=== PATIENT | female | born 1955 | race Caucasian/White ===

== ENCOUNTER 2020-03-09 00:54 | Outpatient (CLI) | payer OTHER, SELFPAY ==
[2020-03-09 17:41] LABS: SARS-CoV-2 RNA PCR Negative
== END 2020-03-09 00:55 | disposition home or self-care (01) ==
LOC: ANHCOVIDDT 00:54
PROVIDERS: PCP Internal Medicine; Visit Provider Internal Medicine Gastroenterology
DX: Z01.812 Encounter for preprocedural laboratory examination (principal); Z20.828 Contact with and (suspected) exposure to other viral communicable diseases
CPT/HCPCS: 87635; C9803; U0003

== ENCOUNTER 2020-03-11 01:56 | Day surgery (SDC) | payer OTHER, SELFPAY ==
[2020-03-05 15:13] VITALS: BMI 21.2
[2020-03-11 10:07] VITALS: BP 158/86; PULSE 50; RESP 18; TEMP 36.1; O2SAT 99; BMI 22.7
[2020-03-11] MEDS: LACTATED RINGERS 1,000 ML 150 ML IV CONT (10:17)
--- NOTE | 2020-03-11 10:17 | WPDANESEPPF ---
Anes - Initial Pre Proc Eval Procedure: Operation Date: 03/11/20 11:00 Proposed Procedures p Esophagogastroduodenoscopy - Salbador Burger MD Date/Time: 03/11/20 10:17 Surgeon: Salbador Burger MD Pre Op Diagnosis: dysphagia Patient Data Age: 64 Gender: F Height: 5 ft 10 in Weight: 72 kg Last Vital Signs Temp 97 F L 03/11/20 10:07 Pulse 50 L 03/11/20 10:07 Resp 18 03/11/20 10:07 BP 158/86 H 03/11/20 10:07 Pulse Ox 99 03/11/20 10:07 Allergies Allergy/AdvReac Type Severity Reaction Status Date / Time No Known Allergies Allergy Verified 03/11/20 10:05 Home Medications Medication Instructions Recorded Confirmed Type levothyroxine 112 mcg capsule 112 mcg PO DAILY 02/17/20 03/05/20 History lisinopril 10 mg tablet 10 mg PO DAILY 02/17/20 03/05/20 History simvastatin 20 mg tablet 20 mg PO DAILY 02/17/20 03/05/20 History valacyclovir 500 mg tablet 500 mg PO DAILY 02/17/20 03/05/20 History calcium carbonate [Calcium 600] 1,200 mg PO DAILY 03/05/20 03/05/20 History cholecalciferol (vitamin D3) 2,000 unit PO DAILY 03/05/20 03/05/20 History [Vitamin D3] Patient hx anesthesia problems: none Family hx anesthesia problems: none PMFSH Past Medical History Medical History (Updated 02/17/20 @ 10:06 by Salbador Burger MD) Adenomatous colon polyp Cancer Heart murmur High cholesterol Hypertension Hypothyroidism Family History Family History (Updated 02/17/20 @ 09:48 by Tamara Simental) Father Liver cancer Mother Heart attack Social History Social History (Updated 02/17/20 @ 09:49 by Tamara Simental) Smoking status: Never smoker Alcohol intake: current Drinks per week: 3 Alcohol use details: WINE Substance use: never Substance use type: does not use Living arrangements: with family Spiritual care concerns: No Anes - Eval Final PreProcedure Day of Procedure 03/11/20 10:17 Patient weight: normal Heart: regular rate and rhythm Lungs: clear to auscultation Airway: Mallampati scale class II Neurological: alert and oriented Last oral intake: >/= 8 hours ASA classification: III Emergent: no Anesthetic plan: proceed Anesthesia type and monitoring: general GIVS and standard monitoring Informed Consent: The patient's anesthetic plan and its attendant risks and benefits were discussed with the patient/family/POA. Questions were solicited and answers provided to the satisfaction of the patient/family/POA.
--- NOTE | 2020-03-11 10:30 | WPDHPUPDATE1 ---
History and Physical Update Update Date/Time: 03/11/20 10:30 History and Physical has been reviewed, including an updated exam of the patient. There are NO changes in the patient's condition. Risks, benefits, and alternatives have been discussed and questions answered. Patient agrees to proceed with procedure.
[2020-03-11 10:53] VITALS: BP 134/88; PULSE 61; RESP 36; O2SAT 97
[2020-03-11 11:05] VITALS: BP 136/94; PULSE 56; RESP 25; O2SAT 94
[2020-03-11 11:15] VITALS: BP 150/102; PULSE 51; RESP 15
== END 2020-03-11 11:39 | disposition home or self-care (01) ==
PROVIDERS: PCP Internal Medicine; Visit Provider Internal Medicine Gastroenterology
PROC: 0DJ08ZZ Inspection of Upper Intestinal Tract, Via Natural or Artificial Opening Endoscopic (ICD-10-PCS; CPT 43235; principal; 2020-03-11 11:00)
DX: K21.00 Gastro-esophageal reflux disease with esophagitis, without bleeding (principal); K22.2 Esophageal obstruction; K29.50 Unspecified chronic gastritis without bleeding; K44.9 Diaphragmatic hernia without obstruction or gangrene; I10 Essential (primary) hypertension; E78.00 Pure hypercholesterolemia, unspecified; E03.9 Hypothyroidism, unspecified
CPT/HCPCS: 43239; 43249; 88305; C1726; J2704; J7120

== ENCOUNTER 2020-06-18 13:20 | Outpatient (CLI) | payer OTHER, SELFPAY ==
--- NOTE | ~2020-06-18 | XR_ITS ---
EXAMINATION: XR hip RT min 2V, XR femur RT min 2V EXAM DATE: 06/18/2020 13:50 INDICATION: No known recent injury provided at this time. Pain of the right hip and femur. TECHNIQUE: Frontal and frog-leg lateral projections right hip, frontal and lateral projections right femur. There is no prior study for comparison. FINDINGS: There is moderate right hip primary osteoarthritis. No evidence of femoral head avascular n ecrosis. There are no acute right hip or femur fractures or dislocations identified. There is no sub cutaneous gas. Calcifications in the pelvis are believed to be phleboliths. There are no radiopaque foreign bodies. IMPRESSION: Moderate right hip osteoarthritis. Unremarkable femur. Reviewed, dictated and finalized at location [facility]. [facility] IMPRESSION: Moderate right hip osteoarthritis. Unremarkable femur.
== END 2020-06-18 13:21 | disposition home or self-care (01) ==
PROVIDERS: Family Provider Internal Medicine; PCP Internal Medicine; Visit Provider Internal Medicine
DX: M25.551 Pain in right hip (principal); M79.651 Pain in right thigh; M16.11 Unilateral primary osteoarthritis, right hip
CPT/HCPCS: 73502; 73552

== ENCOUNTER 2020-07-21 08:43 | Outpatient (CLI) | payer OTHER, SELFPAY | END 2020-07-21 08:44 | disposition home or self-care (01) | LOC: ANHCOVIDVC 08:44 | PROVIDERS: PCP Internal Medicine; Visit Provider Internal Medicine Gastroenterology | DX: Z23 Encounter for immunization (principal) | CPT/HCPCS: 0001A; 91300 ==

== ENCOUNTER 2020-08-11 08:42 | Outpatient (CLI) | payer OTHER, SELFPAY | END 2020-08-11 08:43 | disposition home or self-care (01) | LOC: ANHCOVIDVC 08:42 | PROVIDERS: PCP Internal Medicine | DX: Z23 Encounter for immunization (principal) | CPT/HCPCS: 0002A; 91300 ==

== ENCOUNTER 2022-05-02 07:06 | Day surgery (SDC) | payer MEDICARE, SELFPAY ==
[2022-04-27 10:42] VITALS: BMI 22.7
[2022-05-02 07:30] VITALS: BP 146/108; PULSE 57; RESP 16; TEMP 36.8; O2SAT 98; BMI 22.5
[2022-05-02] MEDS: LACTATED RINGERS 1,000 ML 150 ML IV CONT (07:55)
--- NOTE | 2022-05-02 08:55 | WPDANESEPPF ---
Anes - Initial Pre Proc Eval Procedure: Operation Date: 05/02/22 09:00 Proposed Procedures p Screening Colonoscopy - Salbador Burger MD Date/Time: 05/02/22 08:55 Surgeon: Salbador Burger MD Pre Op Diagnosis: History of Colon Polyps Patient Data Age: 66 Gender: F Height: 1.78 m Weight: 71.3 kg Last Vital Signs Temp 36.8 C 05/02/22 07:30 Pulse 57 L 05/02/22 07:30 Resp 16 05/02/22 07:30 BP 146/108 H 05/02/22 07:30 Pulse Ox 98 05/02/22 07:30 O2 Del Method Room Air 05/02/22 07:30 Allergies Allergy/AdvReac Type Severity Reaction Status Date / Time No Known Allergies Allergy Verified 05/02/22 07:41 Home Medications Medication Instructions Recorded Confirmed Type levothyroxine 112 mcg capsule 112 mcg PO DAILY 02/17/20 05/02/22 History lisinopril 10 mg tablet 10 mg PO DAILY 02/17/20 04/27/22 History simvastatin 20 mg tablet 20 mg PO DAILY 02/17/20 04/27/22 History valacyclovir 500 mg tablet 500 mg PO DAILY 02/17/20 04/27/22 History calcium carbonate 600 mg calcium 1,200 mg PO DAILY 03/05/20 04/27/22 History (1,500 mg) tablet (Calcium) cholecalciferol (vitamin D3) 50 2,000 unit PO DAILY 03/05/20 04/27/22 History mcg (2,000 unit) tablet (Vitamin D3) Patient hx anesthesia problems: none Family hx anesthesia problems: none Results Review: All pre-operative results and documents have been reviewed as part of the pre-operative evaluation. [facility] Past Medical History Medical History Adenomatous colon polyp Cancer Heart murmur High cholesterol Hypertension Hypothyroidism Surgical History Surgical History History of thyroid surgery Hx of thyroid cancer Family History Family History Father Liver cancer Mother Heart attack Social History Social History (Updated 12/13/21 @ 14:40 by HAILY Shirley Smoking status: Never smoker Alcohol intake: current Drinks per week: 3 Alcohol use details: WINE Substance use: never Substance use type: does not use Living arrangements: with family Sexual Orientation (if Verbalized by the Patient): Straight or Heterosexual Spiritual care concerns: No Anes - Eval Final PreProcedure Day of Procedure 05/02/22 08:55 Patient weight: normal Heart: regular rate and rhythm Lungs: clear to auscultation Airway: Mallampati scale class 1 Neurological: alert and oriented Last oral intake: >/= 8 hours ASA classification: III Emergent: no Anesthetic plan: proceed Anesthesia type and monitoring: general GIVS and standard monitoring Results Review: All pre-operative results and documents have been reviewed as part of the pre-operative evaluation. Informed Consent: The patient's anesthetic plan and its attendant risks and benefits were discussed with the patient/family/POA. Questions were solicited and answers provided to the satisfaction of the patient/family/POA.
--- NOTE | 2022-05-02 09:00 | PM.HPGS ---
History of Present Illness History of Present Illness Consent: Risks, benefits, and alternatives have been discussed and questions answered. Patient agrees to proceed with procedure. Chief complaint: History of Colon Polyps Narrative: Marietta Leblanc is a 66 year old female with colon polyp 5 years ago Review of Systems Constitutional: Constitutional: Denies headache(s) and Denies weakness Eyes: Eyes: Denies blurry vision ENT: Reports Normal hearing present, Denies headache(s) and Denies neck pain Cardiovascular: Cardiovascular: Denies chest pain and Denies dyspnea Respiratory: Respiratory: Denies dyspnea Gastrointestinal: Gastrointestinal: Reports no additional gastrointestinal complaints Genitourinary: Genitourinary: Denies dysuria Musculoskeletal: Musculoskeletal: Denies neck pain Integumentary/Breasts: Skin/Breast: Denies dry skin Neurologic: Reports Normal hearing present, Denies headache(s) and Denies weakness Psychiatric: Psychiatric: Denies anxiety Endocrine: Endocrine: Denies change in body appearance Hematologic/Lymphatic: Hematologic/Lymphatic: Denies easy bleeding Allergic/Immunologic: Allergic/Immunologic: Denies urticaria PMFSH Past Medical History Medical History Adenomatous colon polyp Cancer Heart murmur High cholesterol Hypertension Hypothyroidism Surgical History Surgical History History of thyroid surgery Hx of thyroid cancer Family History Family History Father Liver cancer Mother Heart attack Social History Social History (Updated 12/13/21 @ 14:40 by Cynthia Headley MA) Smoking status: Never smoker Alcohol intake: current Drinks per week: 3 Alcohol use details: WINE Substance use: never Substance use type: does not use Living arrangements: with family Sexual Orientation (if Verbalized by the Patient): Straight or Heterosexual Spiritual care concerns: No Meds Home Medications and Allergies Home Medications Medication Instructions Recorded Confirmed Type levothyroxine 112 mcg capsule 112 mcg PO DAILY 02/17/20 05/02/22 History lisinopril 10 mg tablet 10 mg PO DAILY 02/17/20 04/27/22 History simvastatin 20 mg tablet 20 mg PO DAILY 02/17/20 04/27/22 History valacyclovir 500 mg tablet 500 mg PO DAILY 02/17/20 04/27/22 History calcium carbonate 600 mg calcium 1,200 mg PO DAILY 03/05/20 04/27/22 History (1,500 mg) tablet (Calcium) cholecalciferol (vitamin D3) 50 2,000 unit PO DAILY 03/05/20 04/27/22 History mcg (2,000 unit) tablet (Vitamin D3) Allergies Allergy/AdvReac Type Severity Reaction Status Date / Time No Known Allergies Allergy Verified 05/02/22 07:41 Vital Signs Vital Signs - 24 hr 05/02/22 07:30 Temperature 98.3 F Pulse Rate 57 L Respiratory Rate 16 Blood Pressure 146/108 H Pulse Oximetry 98 Oxygen Delivery Room Air Exam Const: General: comfortable and no acute distress HENMT: Face/Nose/Sinus: Normal nares present Eyes: General: appearance normal, both eyes and all related structures Neck: Neck: no JVD Resp: Auscultation: clear to auscultation bilaterally Cardio: Rate: regular rate Rhythm: regular rhythm GI: Inspection: non-distended GI Palp: Yes Soft to palpation Skin: General skin exam: normal color Neuro: General: gait normal Speech: normal speech Extrem: General: normal to inspection Psych: Mental Status: mental status grossly normal Assessment and Plan Assessment and plan (1) Adenomatous colon polyp: Code(s): D12.6 - Benign neoplasm of colon, unspecified Status: Acute Assessment and Plan: colonoscopy
[2022-05-02 09:36] VITALS: BP 141/90; PULSE 52; RESP 18; O2SAT 100
--- NOTE | 2022-05-02 09:41 | WPDANESPN ---
Anes - Prog Note Post-Op Date/Time: 05/02/22 09:41 Cardiovascular status: normal Respiratory status: normal Airway patency: baseline Mental status: baseline Post-Op hydration status: normal Vital Signs: Last Vital Signs Temp 36.8 C 05/02/22 07:30 Pulse 57 L 05/02/22 07:30 Resp 16 05/02/22 07:30 BP 146/108 H 05/02/22 07:30 Pulse Ox 98 05/02/22 07:30 O2 Del Method Room Air 05/02/22 07:30 Pain Score (VAS): 0 I/O: Intake & Output 05/01/22 05/02/22 05/02/22 23:59 07:59 15:59 Intake Total 400 Balance 400 Patient Feedback: Patient satisfied with anesthetic care.
[2022-05-02 09:46] VITALS: BP 122/80; BP 150/100; PULSE 51; PULSE 99; RESP 16; RESP 20; O2SAT 100; O2SAT 99
== END 2022-05-02 10:03 | disposition home or self-care (01) ==
PROVIDERS: PCP Internal Medicine; Visit Provider Internal Medicine Gastroenterology
PROC: 0DJD8ZZ Inspection of Lower Intestinal Tract, Via Natural or Artificial Opening Endoscopic (ICD-10-PCS; CPT 45378; principal; 2022-05-02 09:00)
DX: Z86.010 Personal history of colon polyps (principal)
CPT/HCPCS: 45378

== ENCOUNTER 2022-06-29 13:53 | Outpatient (CLI) | payer MEDICARE, SELFPAY ==
--- NOTE | ~2022-06-29 | DEXA_ITS ---
Bone Density Report Name: GERTRUDIS ANN Age: 66 Sex: Female Ethnicity: White Date of : 1955 Indication: postmenopausal; screening for osteoporosis; parental hip fracture; height loss; cancer; Referring Provider: PATRICIA*JAMESON Mathew Study: Bone densitometry was performed. Exam Date: June 29, 2022 Accession number: [id number] Bone Density: Region BMD T-score Z-score Classification AP Spine(L1-L4) 0.983 -0.6 1.3 Normal Femoral Neck (Left) 0.663 -1.7 -0.1 Osteopenia Total Hip (Left) 0.804 -1.1 0.2 Osteopenia Femoral Neck (Right) 0.730 -1.1 0.5 Osteopenia Total Hip (Right) 0.850 -0.8 0.6 Normal Total Hip Mean 0.827 -1.0 0.4 Normal World Health Organization criteria for BMD impression classify patients as: Normal (T-score at or above -1.0), Osteopenia (T-score between -1.0 and -2.5), or Osteoporosis (T-score at or below -2.5). 10-year Fracture Risk(1): Major Osteoporotic Fracture 17% Hip Fracture 1.7% Reported Risk Factors: [place] (), Neck BMD=0.663, BMI=23.6, parental fracture (1) FRAX(R) Version 3.08. Fracture probability calculated for an untreated patient. Fracture probability may be lower if the patient has received treatment. Previous Exams: Region Exam Age BMD T-score BMD Change BMD Change Date g/cm2 vs Baseline vs Previous AP Spine (L1-L4) 06/29/2022 66 0.983 -0.6 -0.018 (-1.8%) 0.000 (0.0%) 03/16/2016 60 0.983 -0.6 -0.018 (-1.8%) -0.018 (-1.8%) 12/24/2013 58 1.001 -0.4 Total Hip(Left) 06/29/2022 66 0.804 -1.1 0.013 (1.6%) -0.043 (-5.1%) 03/16/2016 60 0.847 -0.8 0.056 (7.0%)* 0.056 (7.0%)* 12/24/2013 58 0.792 -1.2 Total Hip(Right) 06/29/2022 66 0.850 -0.8 0.013 (1.6%) -0.020 (-2.3%) 03/16/2016 60 0.870 -0.6 0.033 (4.0%)* 0.033 (4.0%)* 12/24/2013 58 0.837 -0.9 *Denotes significance at 95% confidence level, LSC for AP Spine = 0.022 g/cm2, LSC for Total Hip = 0.027 g/cm2 Clinical Information Provided by Patient: Parent has had a hip fracture Has used the following medications: Vitamin D, Calcium Has the following medical conditions: Cancer Patient maximum height was 70 Menopause Age: 54 Onset of menses at age 13 Number of children 3 Impression: The patient has low bone mass, based on the Left Femoral Neck T-score. The patient has an estimated ten-year risk of hip fracture of 1.7% and an estimated ten-year risk of major fracture of
== END 2022-06-29 13:54 | disposition home or self-care (01) ==
LOC: ANHIMG 13:54
PROVIDERS: PCP Internal Medicine; Visit Provider Internal Medicine
DX: Z78.0 Asymptomatic menopausal state (principal); M85.852 Other specified disorders of bone density and structure, left thigh; M85.851 Other specified disorders of bone density and structure, right thigh
CPT/HCPCS: 77080

== ENCOUNTER 2022-08-27 11:59 | Emergency (ER) | payer MEDICARE, SELFPAY ==
[2022-08-27 12:14] VITALS: BP 136/96; PULSE 61; RESP 18; TEMP 36.3; O2SAT 99
[2022-08-27 12:16] VITALS: BP 136/96; PULSE 61; RESP 18; TEMP 36.3; O2SAT 99
--- NOTE | 2022-08-27 12:35 | ED.FEMALEGU ---
HPI - Female Genitourinary General Chief complaint: Urogenital-Female Stated complaint: Possible UTI Time Seen by Provider: 08/27/22 12:28 Source: patient Mode of arrival: ambulatory Limitations: no limitations History of Present Illness HPI Narrative: Patient presents today complaining of a 2-3 day history of urinary retention with dysuria that started this morning. Denies hematuria, abdominal pain, back pain, nausea vomiting, sweats or chills. She was recently on a course of amoxicillin after a root canal. Related Data Home Medications Medication Instructions Recorded Confirmed levothyroxine 112 mcg capsule 112 mcg PO DAILY 02/17/20 08/27/22 lisinopril 10 mg tablet 10 mg PO DAILY 02/17/20 08/27/22 simvastatin 20 mg tablet 20 mg PO DAILY 02/17/20 08/27/22 calcium carbonate 600 mg calcium 1,200 mg PO DAILY 03/05/20 08/27/22 (1,500 mg) tablet (Calcium) cholecalciferol (vitamin D3) 50 2,000 unit PO DAILY 03/05/20 08/27/22 mcg (2,000 unit) tablet (Vitamin D3) acyclovir 400 mg tablet 400 mg PO BID 08/27/22 08/27/22 docusate sodium 100 mg capsule 100 mg PO BID 08/27/22 08/27/22 meloxicam 15 mg tablet 15 mg PO DAILY 08/27/22 08/27/22 Allergies Allergy/AdvReac Type Severity Reaction Status Date / Time No Known Allergies Allergy Verified 08/27/22 12:14 Review of Systems Review of Systems: CONSTITUTIONAL: Denies body aches, fever, chills, or sweats. EYES: Denies visual changes, redness, or discharge. ENT: Denies rhinorrhea, congestion, sore throat, or otalgia. CARDIOVASCULAR: Denies chest pain, palpitations, or edema. RESPIRATORY: Denies cough or dyspnea. GASTROINTESTINAL: Denies abdominal pain, nausea, vomiting, or diarrhea. GENITOURINARY: Denies hematuria.+ dysuria, urinary retention SKIN: Denies rash, itching, or wounds. MUSCULOSKELETAL: Denies back pain, joint pain, or myalgia. NEUROLOGIC: Denies headache, numbness, tingling, or weakness. PSYCH: Denies depression or anxiety. [facility] Past Medical History Medical History Adenomatous colon polyp Cancer Heart murmur High cholesterol Hypertension Hypothyroidism Surgical History Surgical History History of thyroid surgery Hx of thyroid cancer Family History Family History Father Liver cancer Mother Heart attack Social History Social History Smoking status: Never smoker Alcohol intake: current Drinks per week: 3 Alcohol use details: WINE Substance use: never Substance use type: does not use Living arrangements: with family Occupation/Education: occupation Sexual Orientation (if Verbalized by the Patient): Straight or Heterosexual Spiritual care concerns: No Comments At time of signature, I have reviewed and agree with nursing past medical, surgical, social and family history unless otherwise noted. Please see nursing chart for further information. There is no relevant family history pertinent to the presenting complaint Exam Narrative: GENERAL: Well-appearing, well-nourished, and in no acute distress. HEAD: Normocephalic, atraumatic. EYES: EOMI. No redness or drainage. Conjunctivae normal. ENT: Mucous membranes pink and moist. NECK: Normal AROM. CHEST: No respiratory distress. Clear to auscultation. HEART: Regular rate and rhythm. No murmur appreciated. Normal peripheral pulses. ABDOMEN: Soft, nontender, nondistended, normal active bowel sounds.-CVAT MUSCULOSKELETAL: No bony tenderness. EXTREMITIES: Normal range of motion. No edema. SKIN: Warm, dry, no rash. Capillary refill normal. Normal skin turgor. NEURO: No focal deficits. Alert and oriented x3. Gait steady. PSYCH: Normal affect. No signs of depression or anxiety. Course Course Level of Care: Express Car
== END 2022-08-27 12:41 | disposition home or self-care (01) ==
PROVIDERS: Emergency Provider Nurse Practitioner; PCP Internal Medicine
DX: N30.01 Acute cystitis with hematuria (principal); R01.1 Cardiac murmur, unspecified; E78.00 Pure hypercholesterolemia, unspecified; I10 Essential (primary) hypertension; E03.9 Hypothyroidism, unspecified; Z85.850 Personal history of malignant neoplasm of thyroid
CPT/HCPCS: 81003; 87077; 87086; 87186; 99213; G0463

== ENCOUNTER 2023-01-13 10:09 | Outpatient (CLI) | payer MEDICARE, SELFPAY ==
--- NOTE | 2023-01-13 15:13 | WPDPFTINT ---
PFT Procedure Performed PFT Procedure Performed Plethysmography (Lung Vol) Diffusing Cap (DLCO) Flow Vol Loop Spirometry w/o Bronchodil PFT Interpretation This is a pulmonary function test with spirometry, plethysmography and diffusing capacity. The test was performed and results interpreted in accordance with the 2019 and 2005 ATS/ERS Task Force guidelines respectively using the Global Lung Function Initiative-2012 reference equations. Patient demonstrated good effort and cooperation. Reproducibility criteria were met. The quality of the spirometry maneuver was Grade B. Findings: Spirometry: The contour the inspiratory and expiratory flow tracing are normal. The FVC is 3.97 L, 110% predicted. The FEV1 is 3.18 L, 114% predicted. The FEV1: FVC ratio was 80%. Plethysmography: The total lung capacity is 6.17 L, 103% predicted. The functional residual capacity is 2.81 L, 82% predicted. The residual volume is 2.02 L, 83% predicted. Diffusing capacity: The diffusing capacity unadjusted for hemoglobin and carboxyhemoglobin is 18.4, 79% predicted. The diffusing capacity adjusted for alveolar volume is 3.71, 91% predicted. Impression: The spirometry is normal without evidence of an obstructive abnormality. The lung volumes are normal. The diffusing capacity is normal. There are no prior studies for comparison
== END 2023-01-13 10:10 | disposition home or self-care (01) ==
PROVIDERS: PCP Internal Medicine; Visit Provider Internal Medicine
DX: R06.00 Dyspnea, unspecified (principal)
CPT/HCPCS: 94375; 94726; 94729

== ENCOUNTER 2024-02-12 11:28 | Outpatient (CLI) | payer MEDICARE, SELFPAY ==
[2024-02-12 14:45] LABS: Basophils Absolute Auto 0.1 K/mm3 (0.0-0.1); Basophils Percent Auto 0.9 % (0.2-1.2); Eosinophils Absolute Auto 0.2 K/mm3 (0-0.3); Eosinophils Percent Auto 2.6 % (0-4.4); Hematocrit 43.4 % (37.0-47.0); Hemoglobin 14.8 g/dL (12.0-15.0); Immature Granulocyte Absolute 0.03 K/mm3 (0.00-0.031); Immature Granulocyte Percent A 0.5 % (0-0.5); Lymphocytes Absolute Auto 1.78 K/mm3 (0.9-3.2); Lymphocytes Percent Auto 26.9 % (18.3-44.2); Mean Corpuscular HGB Conc 34.1 g/dl (32-36); Mean Corpuscular Hemoglobin 32.7 pg (26-34); Mean Corpuscular Volume 95.8 fl (80-100); Mean Platelet Volume 10.2 fl (7.4-10.4); Monocytes Absolute Auto 0.6 K/mm3 (0.1-0.6); Monocytes Percent Auto 9.2 % (2.6-8.5); Neutrophils Percent Auto 59.9 % (45.5-73.1); Platelet Count Result 207 k/mm3 (150-375); Red Blood Count 4.53 M/mm3 (4.2-5.4); Red Cell Distribution Width 12.5 % (11.5-14.5); White Blood Count 6.6 K/mm3 (4.5-10.0)
[2024-02-12 15:12] LABS: Alanine Aminotransferase 20 U/L (6-35); Albumin Level 4.5 g/dL (3.5-5.1); Alkaline Phosphatase 55 U/L (38-126); Anion Gap 9 mmol/L (4-12); Aspartate Amino Transferase 54 U/L (14-36); Bilirubin,Total 0.7 mg/dL (0.2-1.3); Blood Urea Nitrogen 20 mg/dL (7-17); Calcium 9.4 mg/dL (8.4-10.2); Carbon Dioxide 28 mmol/L (22-30); Chloride 103 mmol/L (98-107); Cholesterol 188 mg/dL (0-200); Estimated Glomerular Filt Rate > 60; Glucose 82 mg/dL (65-110); HDL Direct 62 mg/dL; Potassium 3.9 mmol/L (3.4-5.0); Sodium 140 mmol/L (137-145); Triglycerides 119 mg/dL (<150)
[2024-02-12 15:23] LABS: LDL Cholesterol Direct 89 mg/dL
[2024-02-12 15:24] LABS: Vitamin D 25 Hydroxy 57.9 ng/mL
[2024-02-12 15:38] LABS: Thyroid Stimulating Hormone Reflex 0.069 uIU/mL (0.465-4.68)
[2024-02-12 16:16] LABS: Free T4 Free Thyroxine Reflex 1.65 ng/dL (0.78-2.19)
[2024-02-12 17:31] LABS: Total Triiodothyronine (T3) 0.97 NG/ML (0.97-1.69)
== END 2024-02-12 11:29 | disposition home or self-care (01) ==
LOC: ANHGOSHLAB 11:30
PROVIDERS: PCP Family Medicine; Visit Provider Family Medicine
DX: E03.9 Hypothyroidism, unspecified (principal); R53.83 Other fatigue; E55.9 Vitamin D deficiency, unspecified; Z13.220 Encounter for screening for lipoid disorders; Z13.228 Encounter for screening for other metabolic disorders; Z13.29 Encounter for screening for other suspected endocrine disorder
CPT/HCPCS: 36415; 80053; 80061; 82306; 84439; 84443; 84480; 85025

== ENCOUNTER 2024-04-03 15:12 | Outpatient (CLI) | payer MEDICARE, SELFPAY ==
[2024-04-03 20:09] LABS: Free T4 Free Thyroxine 1.49 ng/mL (0.78-2.19)
[2024-04-03 20:19] LABS: Thyroid Stimulating Hormone 0.069 uIU/mL (0.465-4.680)
== END 2024-04-03 15:13 | disposition home or self-care (01) ==
LOC: ANHGOSHLAB 15:13
PROVIDERS: PCP Family Medicine; Visit Provider Family Medicine
DX: E03.9 Hypothyroidism, unspecified (principal)
CPT/HCPCS: 36415; 84439; 84443

== ENCOUNTER 2024-05-20 13:51 | Outpatient (CLI) | payer MEDICARE, SELFPAY ==
[2024-05-20 22:00] LABS: Thyroid Stimulating Hormone 0.721 uIU/mL (0.465-4.680)
[2024-05-20 22:20] LABS: Free T4 Free Thyroxine 1.31 ng/dL (0.78-2.19)
== END 2024-05-20 13:52 | disposition home or self-care (01) ==
LOC: ANHGOSHLAB 13:52
PROVIDERS: PCP Family Medicine; Visit Provider Family Medicine
DX: E03.9 Hypothyroidism, unspecified (principal)
CPT/HCPCS: 36415; 84439; 84443

== ENCOUNTER 2024-11-26 09:10 | Outpatient (CLI) | payer MEDICARE, SELFPAY ==
--- OUTSIDE RECORDS SUMMARY | 2024-11-26 09:16 | XMS_ITS | Data Portability ---
Author Organization [place] - [facility] [employer], Main Office Address [address] [place] [address] Assessment Encounter Date Assessment Date Assessment LastModified by Organization Details LastModified Time 11/01/2022 11/01/2022 Hypertension lisinopril hypothyroid levothyroxine dyslipidemia simvastatin watch red meat arthritis of hip meloxicam sparingly follow-up 6 months [email or web address] Not available 11/06/2022 11:52:27 12/06/2022 12/06/2022 EKG shows a sinus rhythm with T-wave inversions V2 through V 6 Chest x-ray echo stress test blood work follow-up 2 weeks any worsening of symptoms ER Not available 12/10/2022 10:34:09 12/29/2022 12/29/2022 We will obtain PFTs will wait and see what the mortgage processing manager says follow-up in [email or web address] Not available 03/19/2023 18:57:01 02/23/2023 02/23/2023 Slowly getting better I will see her back in 4 months [email or web address] Not available 02/23/2023 21:41:39 Plan of Treatment Reminders Order Date Submit Date Provider Last Modified By Organization Details Last Modified Time Details Appointments None recorded. Lab CBC w/ auto diff 2022 023 LOLITA Not available 13:07:48 CMP, serum or plasma 2022 023 LOLITA Not available 13:17:40 Referral cardiologis t referral 2022 023 [email or web address] [address], [address], [address], [place], [address], 4 11:14:17 Procedures lexiscan cardiolite stress test (PROC) - No auth required 2022 023 [email or web address] [facility] ([facility]), [address] [place], [address], 3 16:24:56 Surgeries None recorded. Imaging PFT, complete - PFT with DLCO 2022 023 [facility] ([facility]iology [facility]), [address], [place], [address], 3 16:17:36 US, echocardiog [email or web address] [address] [facility] ([facility]), [address] [place], [address], 3 16:25:54 XR, chest 2022 023 [email or web address] Not available 3 14:19:33 electrocard iogram 2022 023 [email or web address] [facility] Internal [facility] [address], [place], [address], 3 22:13:34 Medication Orders None recorded. Patient TargetsNo targets recorded. Patient InstructionsNo instructions recorded. 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 Referring Physician: Jameson Silva, Internal Medicine, Encounter Date: 12/29/2022 Results Created Date Observation Date Name Description Value Unit Range Abnormal Flag Note LastModifiedBy Organization Detail LastModifiedTime 04/12/2004/12/2022 T4 FREE free T4 1.92 NG/dL 0.78-2 .19 Not Available [facility] (Lab) [address] [place], [address], 04/12/2022 23:03:08 04/12/20 22 04/12/2022 VITAM IN B12 (CHAN ISMAEL ) [id number] 641 pg/mL 239-93 1 Not Available [facility] (Lab) [address] [place], [address], 04/12/2022 23:00:44 04/12/20 22 04/12/2022 LIPID PANEL LDL cholesterol, calculated 81 mg/dL 0-130 NIH KEVIN NSUS REPOR T RECOM MENDA TIONS FOR LDL: ADULT CHILD LOW RISK <130 <110 (OPTI MAL LDL) <100 ----- BORDE RLINE : 130-1 59 ----- HIGH RISK: >160 >130 A TRIGL YCERI DE RESUL T >400 INVAL IDATE S THE CALCU LATIO N FOR LDL FRACT IONAT ION - THE LDL RESUL T WILL NOT BE REPOR REINA. Not Available [facility] (Lab) [address] [place], [address], 04/12/2022 21:37:58 04/12/20 22 04/12/2022 LIPID PANEL cholesterol 173 mg/dL 140-19 9 NIH KEVIN NSUS RECOM MENDA TION FOR MARIKA STERO L: ADULT CHILD LOW RISK: <200 <170 BORDE RLINE : <200- 239 ----- HIGH RISK: >240 >200 Not Available [facility] (Lab) [address] [place], [address], 04/12/2022 21:37:58 04/12/20 22 04/12/2022 LIPID PANEL triglyceride s 168 mg/dL 0-150 high NIH KEVIN NSUS REPOR T RECOM MENDA TION FOR TRIGL YCERI CORINNE: ADULT CHILD LOW RISK: <150 ----- BODER LINE: 150-1 99 ----- HIGH RISK: >200 ----- Not Available [facility] (Lab) [address] [place], [address], 04/12/2022 21:37:58 04/12/20 22 04/12/2022 LIPID PANEL HDL cholesterol 58 mg/dL 40- Not Available [facility] (Lab) [address] [place], [address], 04/12/2022 21:37:58 04/12/2004/12/2022 CBC/C OMPLE TE BLD COUNT W/DIF F red cell distribution width 12.2 % 11.8-1 5.5 Not Available [facility] (Lab) [address] [place], [address], 04/12/2022 21:26:35 04/12/20 22 04/12/2022 CBC/C OMPLE TE BLD COUNT W/DIF F white blood cells 6.6 x10'3 /uL 4.2-10 .8 Not Available [facility] (Lab) [address] [place], [address], 04/12/2022 21:26:35 04/12/20 22 04/12/2022 CBC/C OMPLE TE BLD COUNT W/DIF F red blood cells 4.58 x10'6 /uL 3.80-5 .20 Not Available [facility] (Lab) [address] [place], [address], 04/12/2022 21:26:35 04/12/20 22 04/12/2022 CBC/C OMPLE TE BLD COUNT W/DIF F hemoglobin 14.8 g/dL 12.0-1 5.6 Not Available [facility] (Lab) [address] [place], [address], 04/12/2022 21:26:35 04/12/20 22 04/12/2022 CBC/C OMPLE TE BLD COUNT W/DIF F hematocrit 44.0 % 35.7-4 5.7 Not Available [facility] (Lab) [address] [place], [address], 04/12/2022 21:26:35 04/12/20 22 04/12/2022 CBC/C OMPLE TE BLD COUNT W/DIF F mean red cell volume 96.1 fL 82.0-9 9.0 Not Available [facility] (Lab) [address] [place], [address], 04/12/2022 21:26:35 04/12/20 22 04/12/2022 CBC/C OMPLE TE BLD COUNT W/DIF F mean red cell hemoglobin 32.3 pg 27.0-3 3.0 Not Available [facility] (Lab) [address] [place], [address], 04/12/2022 21:26:35 04/12/20 22 04/12/2022 CBC/C OMPLE TE BLD COUNT W/DIF F mean RBC HGB concentratio n 33.6 g/dL 31.0-3 6.0 Not Available [facility] (Lab) [address] [place], [address], 04/12/2022 21:26:35 04/12/20 22 04/12/2022 CBC/C OMPLE TE BLD COUNT W/DIF F platelets 244 x10'3 /uL 150-40 0 Not Available [facility] (Lab) [address] [place], [address], 04/12/2022 21:26:35 04/12/20 22 04/12/2022 CBC/C OMPLE TE BLD COUNT W/DIF F mean platelet volume 10.2 fL 9.0-12 .4 Not Available [facility] (Lab) [address] [place], [address], 04/12/2022 21:26:35 04/12/20 22 04/12/2022 CBC/C OMPLE TE BLD COUNT W/DIF F neutrophils 53.7 % 39.0-7 2.0 Not Available [facility] (Lab) [address] [facility] [place], [address], 04/12/2022 21:26:35 04/12/20 22 04/12/2022 CBC/C OMPLE TE BLD COUNT W/DIF F lymphocytes 32.5 % 16.0-4 7.0 Not Available [facility] (Lab) [address] [place], [address], 04/12/2022 21:26:35 04/12/20 22 04/12/2022 CBC/C OMPLE TE BLD COUNT W/DIF F monocytes 8.3 % 5.0-12 .0 Not Available [facility] (Lab) [address] [place], [address], 04/12/2022 21:26:35 04/12/20 22 04/12/2022 CBC/C OMPLE TE BLD COUNT W/DIF F eosinophils 3.5 % 1.0-7. 0 Not Available [facility] (Lab) [address] [place], [address], 04/12/2022 21:26:35 04/12/20 22 04/12/2022 CBC/C OMPLE TE BLD COUNT W/DIF F basophils 1.4 % 0.0-2. 0 Not Available [facility] (Lab) [address] [place], [address], 04/12/2022 21:26:35 04/12/20 22 04/12/2022 CBC/C OMPLE TE BLD COUNT W/DIF F immature granulocytes 0.6 % 0.00-0 .50 high Not Available [facility] (Lab) [address] [place], [address], 04/12/2022 21:26:35 04/12/20 22 04/12/2022 CBC/C OMPLE TE BLD COUNT W/DIF F neutrophils, absolute count 3.56 x10'3 /uL 1.5-8. 0 Not Available [facility] (Lab) [address] [place], [address], 04/12/2022 21:26:35 04/12/20 22 04/12/2022 CBC/C OMPLE TE BLD COUNT W/DIF F lymphocytes, absolute count 2.15 x10'3 /uL 1.07-3 .43 Not Available [facility] (Lab) [address] [place], [address], 04/12/2022 21:26:35 04/12/20 22 04/12/2022 CBC/C OMPLE TE BLD COUNT W/DIF F immature granulocytes ,absolute 0.04 x10'3 /uL 0.00-0 .05 Not Available [facility] (Lab) [address] [place], [address], 04/12/2022 21:26:35 04/12/20 22 04/12/2022 CBC/C OMPLE TE BLD COUNT W/DIF F monocytes, absolute count 0.55 x10'3 /uL 0.29-0 .99 Not Available [facility] (Lab) [address] [place], [address], 04/12/2022 21:26:35 04/12/20 22 04/12/2022 CBC/C OMPLE TE BLD COUNT W/DIF F eosinophils, absolute count 0.23 x10'3 /uL 0.02-0 .53 Not Available [facility] (Lab) [address] [place], [address], 04/12/2022 21:26:35 04/12/20 22 04/12/2022 CBC/C OMPLE TE BLD COUNT W/DIF F basophils, absolute count 0.09 x10'3 /uL 0.01-0 .08 high Not Available [facility] (Lab) [address] [place], [address], 04/12/2022 21:26:35 04/12/20 22 04/12/2022 CBC/C OMPLE TE BLD COUNT W/DIF F nucleated red blood cells 0.0 % -0 Not Available [facility] (Lab) [address] [place], [address], 04/12/2022 21:26:35 04/12/20 22 04/12/2022 CBC/C OMPLE TE BLD COUNT W/DIF F NRBC# 0.00 x10'3 /uL Not Available [facility] (Lab) [address] [place], [address], 04/12/2022 21:26:35 04/12/20 22 04/12/2022 T3 TOTAL T3, total 1.070 NG/mL 0.970- 1.690 Not Available [facility] (Lab) [address] [place], [address], 04/12/2022 23:01:14 04/12/20 22 04/12/2022 TSH thyroid-stim ulating hormone 0.045 uIU/m L 0.465- 4.680 low Not Available [facility] (Lab) [address] [place], [address], 04/12/2022 23:01:08 04/12/20 22 04/12/2022 FOLAT E, SERUM /PLAS MA folate 16.3 NG/mL 2.76-2 0.0 Not Available [facility] (Lab) [address] [place], [address], 04/12/2022 23:00:48 04/12/20 22 04/12/2022 VITAM IN D 25-HY DROXY [id number] 54.6 NG/mL 30-100 Vitam in D Statu s: Defic ient: <20 ng/mL Insuf ficie nt: 20-29 ng/mL Suffi cient : 30-10 0 ng/mL Not Available [facility] (Lab) [address] [place], [address], 04/12/2022 21:58:24 04/12/20 22 04/12/2022 COMPR EHENS ERIS METAB OLIC PANEL carbon dioxide 31 mmol/ L 22-30 high Not Available [facility] (Lab) [address] [place], [address], 04/12/2022 21:37:52 04/12/20 22 04/12/2022 COMPR EHENS ERIS METAB OLIC PANEL sodium 142 mmol/ L 137-14 5 Not Available [facility] (Lab) [address] [place], [address], 04/12/2022 21:37:52 04/12/20 22 04/12/2022 COMPR EHENS ERIS METAB OLIC PANEL potassium 3.9 mmol/ L 3.5-5. 1 Not Available [facility] (Lab) [address] [place], [address], 04/12/2022 21:37:52 04/12/20 22 04/12/2022 COMPR EHENS ERIS METAB OLIC PANEL chloride 104 mmol/ L 98-107 Not Available [facility] (Lab) [address] [place], [address], 04/12/2022 21:37:52 04/12/20 22 04/12/2022 COMPR EHENS ERIS METAB OLIC PANEL anion gap 10.9 mmol/ L 14-22 low Not Available [facility] (Lab) [address] [place], [address], 04/12/2022 21:37:52 04/12/20 22 04/12/2022 COMPR EHENS ERIS METAB OLIC PANEL glucose 80 mg/dL 70-99 Not Available [facility] (Lab) [address] [place], [address], 04/12/2022 21:37:52 04/12/20 22 04/12/2022 COMPR EHENS ERIS METAB OLIC PANEL BUN 20 mg/dL 8-19 high Not Available [facility] (Lab) [address] [place], [address], 04/12/2022 21:37:52 04/12/20 22 04/12/2022 COMPR EHENS ERIS METAB OLIC PANEL creatinine 0.63 mg/dL 0.66-1 .25 low Not Available [facility] (Lab) [address] [place], [address], 04/12/2022 21:37:52 04/12/20 22 04/12/2022 COMPR EHENS ERIS METAB OLIC PANEL GFR >60 Refer ence Range : [place] GFR Healt hy Adult : >60 mL/mi n/1.7 3 m2 Chron ic Kidne y Disea se: 15-60 mL/mi n/1.7 3 m2 Kidne y Failu re: <15/m L/min /1.73 m2 www.n iddk. nih.g ov The MDRD study equat ion has not been valid ated in child harini <18 years of age; pregn ant women ; the elder ly >85 years of age; or in some racia l or ethni c subgr oups, such as Hismi nics. Outsi de the valid ated brionna eters , estim ated GFR is less accur ate, requi ring clini jesse judgm ent on a case- by-ca se basis . Clini jesse inter preta tion for other races and ages must be made by the clini eh. The MDRD study equat ion has not been valid ated for the evalu ation of serum creat inine relat ed to nutri yuliana l statu s or medic ation usage . For perso ns <18 years of age, a pedia tric GFR calcu lator is avail able on the [facility] websi te: https ://krystle w.kid wilbert.o rg/pr elenaess ional s/kdo qi/gf r_cal culat or Not Available [facility] (Lab) [address] [place], [address], 04/12/2022 21:37:52 04/12/20 22 04/12/2022 COMPR EHENS ERIS METAB OLIC PANEL alkaline phosphatase 58 U/L 38-126 Not Available [facility] (Lab) [address] [place], [address], 04/12/2022 21:37:52 04/12/20 22 04/12/2022 COMPR EHENS ERIS METAB OLIC PANEL alanine aminotransfe rase 24 U/L 0-35 Not Available [facility] (Lab) [address] [place], [address], 04/12/2022 21:37:52 04/12/20 22 04/12/2022 COMPR EHENS ERIS METAB OLIC PANEL aspartate aminotransfe rase 27 U/L 15-37 Not Available [facility] (Lab) [address] [place], [address], 04/12/2022 21:37:52 04/12/20 22 04/12/2022 COMPR EHENS ERIS METAB OLIC PANEL bilirubin, total 0.50 mg/dL 0.20-1 .30 Not Available [facility] (Lab) [address] [place], [address], 04/12/2022 21:37:52 04/12/20 22 04/12/2022 COMPR EHENS ERIS METAB OLIC PANEL calcium 9.0 mg/dL 8.4-10 .2 Not Available [facility] (Lab) [address] [place], [address], 04/12/2022 21:37:52 04/12/20 22 04/12/2022 COMPR EHENS ERIS METAB OLIC PANEL total protein 7.0 g/dL 6.3-8. 2 Not Available [facility] (Lab) [address] [place], [address], 04/12/2022 21:37:52 04/12/20 22 04/12/2022 COMPR EHENS ERIS METAB OLIC PANEL albumin 4.4 g/dL 3.0-4. 4 Not Available [facility] (Lab) [address] [place], [address], 04/12/2022 21:37:52 04/12/20 22 04/12/2022 COMPR EHENS ERIS METAB OLIC PANEL globulin 2.6 g/dL 2.6-4. 2 Not Available [facility] (Lab) [address] [place], [address], 04/12/2022 21:37:52 04/12/20 22 04/12/2022 COMPR EHENS ERIS METAB OLIC PANEL A/G ratio 1.7 ratio 1.0-2. 0 Not Available [facility] (Lab) [address] [place], [address], 04/12/2022 21:37:52 12/08/19 23 12/07/2022 CBC/C OMPLE TE BLD COUNT W/DIF F white blood cells 6.0 x10'3 /uL 4.2-10 .8 Not Available [facility] (Lab) [address] [place], [address], 12/07/2022 13:07:48 12/08/19 23 12/07/2022 CBC/C OMPLE TE BLD COUNT W/DIF F red blood cells 4.72 x10'6 /uL 3.80-5 .20 Not Available [facility] (Lab) [address] [place], [address], 12/07/2022 13:07:48 12/08/19 23 12/07/2022 CBC/C OMPLE TE BLD COUNT W/DIF F hemoglobin 15.1 g/dL 12.0-1 5.6 Not Available [facility] (Lab) [address] [place], [address], 12/07/2022 13:07:48 12/08/19 23 12/07/2022 CBC/C OMPLE TE BLD COUNT W/DIF F hematocrit 43.9 % 35.7-4 5.7 Not Available [facility] (Lab) [address] [place], [address], 12/07/2022 13:07:48 12/08/19 23 12/07/2022 CBC/C OMPLE TE BLD COUNT W/DIF F mean red cell volume 93.0 fL 82.0-9 9.0 Not Available [facility] (Lab) [address] [place], [address], 12/07/2022 13:07:48 12/08/19 23 12/07/2022 CBC/C OMPLE TE BLD COUNT W/DIF F mean red cell hemoglobin 32.0 pg 27.0-3 3.0 Not Available [facility] (Lab) [address] [facility] [place] [place], [address], 12/07/2022 13:07:48 12/08/19 23 12/07/2022 CBC/C OMPLE TE BLD COUNT W/DIF F mean RBC HGB concentratio n 34.4 g/dL 31.0-3 6.0 Not Available [facility] (Lab) [address] [place], [address], 12/07/2022 13:07:48 12/08/19 23 12/07/2022 CBC/C OMPLE TE BLD COUNT W/DIF F red cell distribution width 12.0 % 11.8-1 5.5 Not Available [facility] (Lab) [address] [place], [address], 12/07/2022 13:07:48 12/08/19 23 12/07/2022 CBC/C OMPLE TE BLD COUNT W/DIF F platelets 205 x10'3 /uL 150-40 0 Not Available [facility] (Lab) [address] [place], [address], 12/07/2022 13:07:48 12/08/19 23 12/07/2022 CBC/C OMPLE TE BLD COUNT W/DIF F mean platelet volume 10.0 fL 9.0-12 .4 Not Available [facility] (Lab) [address] [place], [address], 12/07/2022 13:07:48 12/08/19 23 12/07/2022 CBC/C OMPLE TE BLD COUNT W/DIF F neutrophils 60.6 % 39.0-7 2.0 Not Available [facility] (Lab) [address] [place], [address], 12/07/2022 13:07:48 12/08/19 23 12/07/2022 CBC/C OMPLE TE BLD COUNT W/DIF F lymphocytes 28.9 % 16.0-4 7.0 Not Available [facility] (Lab) [address] [place], [address], 12/07/2022 13:07:48 12/08/19 23 12/07/2022 CBC/C OMPLE TE BLD COUNT W/DIF F monocytes 7.3 % 5.0-12 .0 Not Available [facility] (Lab) [address] [place], [address], 12/07/2022 13:07:48 12/08/19 23 12/07/2022 CBC/C OMPLE TE BLD COUNT W/DIF F eosinophils 2.0 % 1.0-7. 0 Not Available [facility] (Lab) [address] [place], [address], 12/07/2022 13:07:48 12/08/19 23 12/07/2022 CBC/C OMPLE TE BLD COUNT W/DIF F basophils 0.7 % 0.0-2. 0 Not Available [facility] (Lab) [address] [place], [address], 12/07/2022 13:07:48 12/08/19 23 12/07/2022 CBC/C OMPLE TE BLD COUNT W/DIF F immature granulocytes 0.5 % 0.00-0 .50 Not Available [facility] (Lab) [address] [place], [address], 12/07/2022 13:07:48 12/08/19 23 12/07/2022 CBC/C OMPLE TE BLD COUNT W/DIF F neutrophils, absolute count 3.66 x10'3 /uL 1.5-8. 0 Not Available [facility] (Lab) [address] [place], [address], 12/07/2022 13:07:48 12/08/19 23 12/07/2022 CBC/C OMPLE TE BLD COUNT W/DIF F lymphocytes, absolute count 1.74 x10'3 /uL 1.07-3 .43 Not Available [facility] (Lab) [address] [place], [address], 12/07/2022 13:07:48 12/08/19 23 12/07/2022 CBC/C OMPLE TE BLD COUNT W/DIF F monocytes, absolute count 0.44 x10'3 /uL 0.29-0 .99 Not Available [facility] (Lab) [address] [place], [address], 12/07/2022 13:07:48 12/08/19 23 12/07/2022 CBC/C OMPLE TE BLD COUNT W/DIF F eosinophils, absolute count 0.12 x10'3 /uL 0.02-0 .53 Not Available [facility] (Lab) [address] [place], [address], 12/07/2022 13:07:48 12/08/19 23 12/07/2022 CBC/C OMPLE TE BLD COUNT W/DIF F basophils, absolute count 0.04 x10'3 /uL 0.01-0 .08 Not Available [facility] (Lab) [address] [place], [address], 12/07/2022 13:07:48 12/08/19 23 12/07/2022 CBC/C OMPLE TE BLD COUNT W/DIF F immature granulocytes ,absolute 0.03 x10'3 /uL 0.00-0 .05 Not Available [facility] (Lab) [address] [place], [address], 12/07/2022 13:07:48 12/08/19 23 12/07/2022 CBC/C OMPLE TE BLD COUNT W/DIF F nucleated red blood cells 0.0 % -0 Not Available [facility] (Lab) [address] [place], [address], 12/07/2022 13:07:48 12/08/19 23 12/07/2022 CBC/C OMPLE TE BLD COUNT W/DIF F NRBC# 0.00 x10'3 /uL Not Available [facility] (Lab) [address] [place], [address], 12/07/2022 13:07:48 12/08/19 23 12/07/2022 COMPR EHENS ERIS METAB OLIC PANEL sodium 141 mmol/ L 137-14 5 Not Available [facility] (Lab) [address] [place], [address], 12/07/2022 13:17:40 12/08/19 23 12/07/2022 COMPR EHENS ERIS METAB OLIC PANEL potassium 3.9 mmol/ L 3.5-5. 1 Not Available [facility] (Lab) [address] [place], [address], 12/07/2022 13:17:40 12/08/19 23 12/07/2022 COMPR EHENS ERIS METAB OLIC PANEL chloride 105 mmol/ L 98-107 Not Available [facility] (Lab) [address] [place], [address], 12/07/2022 13:17:40 12/08/19 23 12/07/2022 COMPR EHENS ERIS METAB OLIC PANEL carbon dioxide 25 mmol/ L 22-30 Not Available [facility] (Lab) [address] [place], [address], 12/07/2022 13:17:40 12/08/19 23 12/07/2022 COMPR EHENS ERIS METAB OLIC PANEL anion gap 14.9 mmol/ L 14-22 Not Available [facility] (Lab) [address] [place], [address], 12/07/2022 13:17:40 12/08/19 23 12/07/2022 COMPR EHENS ERIS METAB OLIC PANEL glucose 140 mg/dL 70-99 high Not Available [facility] (Lab) [address] [place], [address], 12/07/2022 13:17:40 12/08/19 23 12/07/2022 COMPR EHENS ERIS METAB OLIC PANEL BUN 17 mg/dL 8-19 Not Available [facility] (Lab) [address] [place], [address], 12/07/2022 13:17:40 12/08/19 23 12/07/2022 COMPR EHENS ERIS METAB OLIC PANEL creatinine 0.65 mg/dL 0.66-1 .25 low Not Available [facility] (Lab) [address] [place], [address], 12/07/2022 13:17:40 12/08/19 23 12/07/2022 COMPR EHENS ERIS METAB OLIC PANEL GFR >60 Refer ence Range : [place] GFR Healt hy Adult : >60 mL/mi n/1.7 3 m2 Chron ic Kidne y Disea se: 15-60 mL/mi n/1.7 3 m2 Kidne y Failu re: <15/m L/min /1.73 m2 www.n iddk. nih.g ov The MDRD study equat ion has not been valid ated in child harini <18 years of age; pregn ant women ; the elder ly >85 years of age; or in some racia l or ethni c subgr oups, such as Hispa nics. Outsi de the valid ated brionna eters , estim ated GFR is less accur ate, requi ring clini jesse judgm ent on a case- by-ca se basis . Clini jesse inter preta tion for other races and ages must be made by the clini eh. The MDRD study equat ion has not been valid ated for the evalu ation of serum creat inine relat ed to nutri yuliana l statu s or medic ation usage . For perso ns <18 years of age, a pedia tric GFR calcu lator is avail able on the [facility] websi te: https ://ww w.kid wilbert.o rg/pr ofess ional s/kdo qi/gf r_cal culat or Not Available [facility] (Lab) [address] [place], [address], 12/07/2022 13:17:40 12/08/19 23 12/07/2022 COMPR EHENS ERIS METAB OLIC PANEL alkaline phosphatase 54 U/L 38-126 Not Available [facility] (Lab) [address] [place], [address], 12/07/2022 13:17:40 12/08/19 23 12/07/2022 COMPR EHENS ERIS METAB OLIC PANEL alanine aminotransfe rase 21 U/L 0-35 Not Available [facility] (Lab) [address] [place], [address], 12/07/2022 13:17:40 12/08/19 23 12/07/2022 COMPR EHENS ERIS METAB OLIC PANEL aspartate aminotransfe rase 28 U/L 15-37 Not Available [facility] (Lab) [address] [place], [address], 12/07/2022 13:17:40 12/08/19 23 12/07/2022 COMPR EHENS ERIS METAB OLIC PANEL bilirubin, total 0.60 mg/dL 0.20-1 .30 Not Available [facility] (Lab) [address] [place], [address], 12/07/2022 13:17:40 12/08/19 23 12/07/2022 COMPR EHENS ERIS METAB OLIC PANEL calcium 9.5 mg/dL 8.4-10 .2 Not Available [facility] (Lab) [address] [place], [address], 12/07/2022 13:17:40 12/08/19 23 12/07/2022 COMPR EHENS ERIS METAB OLIC PANEL total protein 7.2 g/dL 6.3-8. 2 Not Available [facility] [facility] (Lab) [address] [place], [address], 12/07/2022 13:17:40 12/08/19 23 12/07/2022 COMPR EHENS ERIS METAB OLIC PANEL albumin 4.5 g/dL 3.0-4. 4 high Not Available [facility] (Lab) [address] [place], [address], 12/07/2022 13:17:40 12/08/19 23 12/07/2022 COMPR EHENS ERIS METAB OLIC PANEL globulin 2.7 g/dL 2.6-4. 2 Not Available [facility] (Lab) [address] [place], [address], 12/07/2022 13:17:40 12/08/19 23 12/07/2022 COMPR EHENS ERIS METAB OLIC PANEL A/G ratio 1.7 ratio 1.0-2. 0 Not Available [facility] (Lab) [address] [place], [address], 12/07/2022 13:17:40 12/07/19 elect trinidad blanchard am No observ ation record ed. [email or web address] [address], [place], [address], 12/06/2022 16:37:12/08/19 23 12/06/2022 elect trinidad blanchard am No observ ation record ed. BARCODE Not Available 2022 09:52:53 12/08/19 XR, chest [facility] [address] [place] [address] Patien t Name: NOBLE HUNT Access ion #: [id number] Sex: F : 1955 1 Dictat ed By: Tae Shin Attend ing Physic celia: ALEXIS SILVA Orderi Physic celia: ALEXIS SILVA Exam Date: 2022 10:47 AM Exam Name: XR CHEST 2V Admitt ing Diagno sis(es ): EXAM: XR CHEST 2V INDICA TION: 67 years old Female sob COMPAR JENNIFER: None. FINDIN GS: The cardia c silhou ette is normal . There is no pulmon mitch edema. The lungs are clear. There is no pneumo apolinar. There is no pneumo thorax . There is no abnorm al foreig n body. IMPRES SILVIO: There is no acute abnorm ality. Electr onical ly Signed by: Tae Shin at 2022 11:44: 13 AM Page 1 [email or web address] [facility] (Imaging) [address] [place], [address], 12/29/2022 16:50:13 12/21/19 23 12/20/2022 , echoc ardio gram No observ ation record ed. [facility] [address] [place], [address], 12/29/2022 16:50:14 12/28/19 23 12/27/2022 shankar can cardi olite stres s test (PROC ) [facility] [address] [place] [address] Patien t Name: NOBLE HUNT Access ion #: [id number] Sex: F : 1955 2 Dictat ed By: Alexis dutton Attend ing Physic celia: ALEXIS SILVA Orderi ng Physic celia: MYRNA SILVAJAYESH Harkins Exam Date: 2022 06:32 AM Exam Name: NM MYOCAR D SPECT MULT Admitt ing Diagno sis(es ): CLINIC AL INFORM ATION: Abnorm al EKG. Shortn ess of breath for months . Hypert ension . Dyslip idemia . TECHNI QUE: 10.5 mCi of techne tium 99m sestam ibi was infuse d at 6:35 AM. Rest SPECT imagin g was obtain ed. Routin e protoc ol for Lexisc an stress study was perfor med with 0.4 mg of Lexisc an. 27.5 mCi of techne tium 99m sestam ibi was infuse d at 8:10 AM. Stress SPECT imagin g was obtain ed. COMPAR JENNIFER: No prior studie s. FINDIN GS: There is no eviden ce of stress induce d ischem ia or stress dilata tion of the left ventri mckenna. 3 times a day is 1.03 Wall motion imagin g appear s normal . Calcul ated left ventri cular ejecti on fracti on is 59%. IMPRES SILVIO: No eviden ce of stress -induc ed ischem ia. Left ventri cular ejecti on fracti on is 59%. Electr onical ly Signed by: Alexis dutton at 2022 11:06: 20 AM Page 1 [facility] (Imaging) [address] [place], [address], 12/29/2022 16:50:24 01/14/20 23 01/13/2023 PFT, compl ete No observ ation record ed. [address], [address], 02/28/2023 16:11:31 Result Notes Documentation Provider Name and Address Organization Details Recorded Time Xr, Chest : [facility] [address] [place] [address] Patient Name: MARIETTA LEBLANC Sex: F : 1955 Dictated By: Tae Shin Attending Physician: JAMESON SILVA Ordering Physician: JAMESON SILVA Exam Date: 12/07/2022 10:47 AM Exam Name: XR CHEST 2V Admitting Diagnosis(es): EXAM: XR CHEST 2V INDICATION: 67 years old Female sob COMPARISON: None. FINDINGS: The cardiac silhouette is normal. There is no pulmonary edema. The lungs are clear. There is no pneumonia. There is no pneumothorax. There is no abnormal foreign body. IMPRESSION: There is no acute abnormality. Page 1 MIKE Graham [place] - [place] [employer] [facility] 12/29/2022 16:50:13 Problems Name Problem SNOMED Code Status Onset Date Resolution Date Notes Provider Name and Address Organization Details Recorded Time Uterine prolapse 10506238 Active 2021 Not Available [employer] 3 12:33:36 Pure hypercholeste rolemia 336862620 Active Not Available [employer] 3 12:33:36 Vitamin D deficiency 84382538 Active Not Available [employer] 3 12:33:36 Hypothyroidis m 50613595 Active Not Available [employer] 3 12:33:36 Essential hypertension 85740313 Active Not Available [employer] 3 12:33:36 COVID-19 481511290 Active 2021 Not Available [employer] 3 12:33:36 Electrocardio gram abnormal 396028290 Active 2022 Not Available [employer] 3 12:33:36 Dyspnea 882328552 Active 2022 Not Available [employer] 3 12:33:36 Echocardiogra m abnormal 757953856 Active 2022 Not Available [employer] 3 12:33:36 Herpes labialis 1326098 Active 2022 Not Available [employer] 3 12:33:36 Dysuria 91915127 Active 2022 Marietta Garcia RN [facility], [facility] [employer] [facility] 15:25:04 Problem Notes None recorded. Procedures Surgical History Date Name Laterality Status Provider Name and Address Organization Details Recorded Time 06/03/19 23 Bladder completed MIKE Graham ME [employer] [facility] [employer] 11/01/2022 10:54:14 03/27/20 17 Date of Last Colonoscopy completed Not Available [facility] 07/20/2022 06:11:06 06/26/19 09 Most Recent Bone Density completed Not Available [facility] 07/20/2022 06:11:06 excision of basal cell carcinoma completed Not Available [facility] 07/20/2022 06:11:09 Imaging Results None recorded. Procedure Notes None recorded. Medical Equipment None Reported. Allergies No known drug allergies Medications Name Sig Start Date Stop Date Status Note LastModified by Organization Details LastModified Time ibuprofen 800 mg tablet TAKE 1 TABLET BY MOUTH EVERY 8 HOURS NEEDED FOR PAIN active Not Available Not Available No t Available hydrocodone 5 mg-acetamin ophen 325 mg tablet TAKE 1 TABLET BY MOUTH EVERY 6 HOURS NEEDED 12/06 completed Not Available Not Available Not Available meloxicam 15 mg tablet TAKE 1 TABLET BY MOUTH EVERY DAY active Not Available Not Available No t Available acyclovir 400 mg tablet TAKE 1 TABLET BY MOUTH DAILY active Not Available Not Available No t Available valacyclovi r 500 mg tablet 12/16 completed Not Available Not Available Not Available penciclovir 1 % topical cream APPLY TOPICALLY TO THE AFFECTED AREA EVERY 2 HOURS WHILE AWAKE FOR 4 DAYS active Not Available Not Available No t Available ciprofloxac in 500 mg tablet TAKE 1 TABLET BY MOUTH TWICE DAILY 06/25 completed Not Available Not Available Not Available amoxicillin 875 mg tablet TAKE 1 TABLET BY MOUTH TWICE DAILY UNTIL ALL TAKEN 12/06 completed Not Available Not Available Not Available sulfacetami de sodium 10 % eye drops INT 3 DROPS INTO LEFT EYE TID FOR 1 WEEK 11/02 completed Not Available Not Available Not Available cephalexin 500 mg capsule TAKE 1 CAPSULE BY MOUTH EVERY 6 HOURS FOR 7 DAYS 12/06 completed Not Available Not Available Not Available simvastatin 20 mg tablet TAKE 1 TABLET BY MOUTH DAILY 2022 active Not Available Not Available Not Avai lable levothyroxi ne 125 mcg tablet 06/05 completed Not Available Not Available Not Available lisinopril 10 mg tablet TAKE 1 TABLET BY MOUTH DAILY 2022 active Not Available Not Available Not Avai lable docusate sodium 100 mg capsule TAKE 1 CAPSULE BY MOUTH TWICE DAILY 12/06 completed Not Available Not Available Not Available acyclovir 200 mg capsule Take 1 capsule every day by oral route. 06/19 completed Not Available Not Available Not Available ergocalcife rol (vitamin D2) 1,250 mcg (50,000 unit) capsule TK ONE C PO MONTHLY 11/02 completed Not Available Not Available Not Available oxycodone-a cetaminophe n 7.5 mg-325 mg tablet TK 1 T PO Q 4 H PRN P 11/02 completed Not Available Not Available Not Available cefdinir 300 mg capsule TK 2 CS PO QD 06/19 completed Not Available Not Available Not Available levothyroxi ne 112 mcg tablet TAKE 1 TABLET BY MOUTH DAILY 2022 active Not Available Not Available Not Avai lable amoxicillin 875 mg-potassiu m clavulanate 125 mg tablet TK 1 T PO BID 11/02 completed Not Available Not Available Not Available B-12 1,000 mcg tablet Take by oral route. 2021 active Not Available Not Available Not Avai lable nitrofurant oin monohydrate /macrocryst als 100 mg capsule TAKE 1 CAPSULE BY MOUTH TWICE DAILY FOR 5 DAYS active Not Available Not Available No t Available chlorhexidi ne gluconate 0.12 % mouthwash SWISH AND SPIT 10 ML TID AFTER MEALS. START THE DAY AFTER SURGERY 11/02 completed Not Available Not Available Not Available Vitamin D3 2016 active Not Available Not Available Not Avai lable Calcium 500 2016 active Not Available Not Available Not Avai lable B-12 04/21 completed Not Available Not Available Not Available Zostavax (PF) 19,400 unit/0.65 mL subcutaneou s suspension ADM 0.65ML SC UTD active Not Available Not Available No t Available Fluvirin 4372-9685(P F) 45 mcg (15 mcg x3)/0.5 mL intramuscul ar syringe ADM 0.5ML UTD active Not Available Not Available No t Available Fluvirin [id number] 45 mcg (15 mcg x 3)/0.5 mL intramuscul ar suspension INJECT 0.5 ML INTRAMUSC ULARLY DIRECTED. active Not Available Not Available No t Available Fluvirin [id number] 45 mcg (15 mcg x 3)/0.5 mL intramuscul ar suspension active Not Available Not Available N ot Available Fluvirin [id number] 45 mcg (15 mcg x 3)/0.5 mL intramuscul ar suspension ADM 0.5ML IM UTD active Not Available Not Available No t Available Shingrix (PF) 50 mcg/0.5 mL intramuscul ar suspension, kit 12/15 completed Not Available Not Available Not Available Fluarix Quad (PF) 60 mcg (15 mcg x 4)/0.5 mL IM syringe ADM 0.5ML IM UTD 06/19 completed Not Available Not Available Not Available Afluria Qd 2018- (36 mos up)(PF)60 mcg (15 mcg x4)/0.5 mL IM syringe ADM 0.5ML IM UTD 06/18 completed Not Available Not Available Not Available Fluarix Quad (PF) 60 mcg (15 mcg x 4)/0.5 mL IM syringe ADM 0.5ML IM UTD 12/15 completed Not Available Not Available Not Available Paxlovid 300 mg (150 mg x 2)-100 mg tablets in a dose pack Take 3 tablets twice a day by oral route for 5 days. 11/01 completed Not Available Not Available Not Available Vitals Date Recorded Body height Body mass index (BMI) Body weight Body temperature Heart rate Systolic And Diastolic Provider Name and Address Organization Details Last Updated DateTime 3 176.53 cm 23.4 kg/m2 94694.3 7 g 97.2 [degF] 64 /min 122/84 mm[Hg] MIKE Graham [place] [employer] [facility] 3 10:57:27 Date Recorded Body height Body mass index (BMI) Body weight Body temperature Heart rate Systolic And Diastolic Provider Name and Address Organization Details Last Updated DateTime 3 176.53 cm 23.9 kg/m2 24886.1 5 g 97.4 [degF] 59 /min 148/84 mm[Hg] MIKE Graham [facility] [employer] [facility] 3 15:56:10 Date Recorded Body height Body mass index (BMI) Body weight Body temperature Heart rate Systolic And Diastolic Provider Name and Address Organization Details Last Updated DateTime 3 176.53 cm 23.6 kg/m2 97604.9 6 g 97.9 [degF] 59 /min 128/74 mm[Hg] Marietta harkins RN [facility] [employer] [facility] 3 15:16:55 Date Recorded Body height Body mass index (BMI) Body weight Body temperature Heart rate Systolic And Diastolic Provider Name and Address Organization Details Last Updated DateTime 3 176.53 cm 23 kg/m2 98407.5 9 g 98.1 [degF] 63 /min 136/78 mm[Hg] Marietta harkins RN [facility] [employer] [facility] 3 15:18:25 Date Recorded Body mass index (BMI) Body height Heart rate Body temperature Body weight Systolic And Diastolic Provider Name and Address Organization Details Last Updated DateTime 2 23.3 kg/m2 176.53 cm 63 /min 98.4 [degF] 14725.7 8 g 122/88 mm[Hg] Not Available [employer] 3 06:12:39 Social History Question Answer Notes LastModified by Organizat ion Details LastModified Time Tobacco Smoking Status Never Smoker MIKE Antonio, [facility] [employer] [facility] 12/29/2022 15:00:23 Do You Have An Advance Directive? Yes [id number] Information not available 07/20/2022 Do You Wear A Helmet When Biking? Yes Information not available 12/29/2022 Are You Blind Or Do You Have Difficulty Seeing? No Information not available 12/29/2022 What Is Your Level Of Caffeine Consumption? Moderate [id number] Information not available 07/20/2022 What Is Your Code Status? DNR Information not available 12/29/2022 In The 14 Days Before Symptom Onset, Have You Had Close Contact With A Laboratory-confi rmed COVID-19 While That Case Was Ill? No Information not available 12/29/2022 In The 14 Days Before Symptom Onset, Have You Had Close Contact With A Person Who Is Under Investigation For COVID-19 While That Person Was Ill? No Information not available 12/29/2022 Are You Deaf Or Do You Have Serious Difficulty Hearing? No Information not available 12/29/2022 What Type Of Diet Are You Following? REGULAR [id number] Information not available 07/20/2022 What Is The Highest Grade Or Level Of School You Have Completed Or The Highest Degree You Have Received? [id number] Information not available 12/29/2022 How Many Days Of Moderate To Strenuous Exercise, Like A Brisk Walk, Did You Do In The Last 7 Days? 7 Information not available 12/29/2022 On Those Days That You Engage In Moderate To Strenuous Exercise, How Many Minutes, On Average, Do You Exercise? 60 Information not available 12/29/2022 Have There Been Any Changes To Your Family Or Social Situation? No Information not available 12/29/2022 What Is The Fluoride Status Of Your Home? Unknown Information not available 12/29/2022 Are There Any Guns Present In Your Home? No Information not available 12/29/2022 Do You Use Insect Repellent Routinely? Yes Information not available 12/29/2022 Where Do You Live? [facility] Information not available 12/29/2022 Do You Have A Medical Power Of Fiscal Officer? Yes Information not available 12/29/2022 What Was The Date Of Your Most Recent Tobacco Screening? 02/23/2023 Information not available 02/23/2023 Have You Ever Been Counseled For Unhealthy Alcohol Use? No Information not available 12/29/2022 Do You Have Any Pets? Yes Information not available 12/29/2022 What Is Your Relationship Status? [id number] Information not available 07/20/2022 Do You Use Your Seat Belt Or Car Seat Routinely? Yes Information not available 12/29/2022 Do You Have Smoke And Carbon Monoxide Detectors In Your Home? Yes Information not available 12/29/2022 Are You Passively Exposed To Smoke? No Information not available 12/29/2022 Are There Any Smokers In Your House? No Information not available 12/29/2022 What Types Of Sporting Activities Do You Participate In? Golf Information not available 12/29/2022 Do You Use Sunscreen Routinely? Yes Information not available 12/29/2022 Has Tobacco Cessation Counseling Been Provided? No Not Needed -pt Never Smoked Information not available 12/29/2022 Have You Recently Traveled Abroad? No Information not available 12/29/2022 Do You Have Difficulty Walking Or Climbing Stairs? No Information not available 12/29/2022 Do You Have Any Dietary Restrictions? No Information not available 12/29/2022 Sex: Female Functional Status Question Answer Note LastModified by Organizat ion Details LastModified Time Do you use any illicit or recreational drugs? No Information not available 12/29/2022 Do you or have you ever used any other forms of tobacco or nicotine? No Information not available 12/29/2022 What is your level of alcohol consumption? Occasional [id number] Information not available 07/20/2022 Are you currently employed? No Information not available 12/29/2022 Do you have transportation difficulties? No Information not available 12/29/2022 Are you able to walk? [employer] Information not available 12/29/2022 Do you have difficulty doing errands alone? No Information not available 12/29/2022 Are you able to care for yourself? Yes Information n ot available 12/29/2022 What is your occupation? retired Information not available 12/29/2022 Do you have difficulty dressing or bathing? No Information not available 12/29/2022 What is your exercise level? Moderate walks,ri de bike [id number] Information not available 07/20/2022 Mental Status Question Answer Note LastModified by Organizat ion Details LastModified Time Do you feel stressed (tense, restless, nervous, or anxious, or unable to sleep at night)? [id number] Information not available 12/29/2022 Do you have difficulty concentrating, remembering or making decisions? No Information no t available 12/29/2022 Family History Relationship Description Onset Age of this Age Resolved Age Notes LastModified by Organization Details LastModified Time Father Malignant tumor of kidney cyahl Not available 2022 15:00:19 Mother Hypertensive disorder [id number] Not available 07/20/2022 06:11:10 Mother Hypercholest erolemia [id number] Not available 07/20/2022 06:11:10 Son Malignant neoplasm of brain cyahl Not available 2022 15:00:19 Medical History Condition Response BLINDNESS N NERVE DISEASE N RHEUMATIC FEVER N BLADDER PROBLEMS N KIDNEY STONES N MRSA N OTHER # 1 N POLIO N LUNG DISEASE/DISORDER N HISTORY OF DRUG ABUSE N RADIATION / CHEMOTHERAPY N COPD N Other # 2 N BLOOD DISEASES N EAR OR HEARING PROBLEMS N MUMPS N SHINGLES N BOWEL PROBLEMS N DEPRESSION (INCLUDING POST ) N STROKE/TIA N ULCERS N BENIGN PROSTATIC HYPERPLASIA N MEASLES N HYPOTENSION N MYOCARDIAL INFARCTION N OBESITY N GERD/NAUSEA N ANEURYSM N URINARY/BLADDER/KIDNEY PROBLEMS N CORONARY ARTERY DISEASE (CAD) N ADDICTION CONCERNS N Impotence N ENDOMETRIOSIS N USE OF BLOOD THINNERS N SKIN PROBLEMS N GASTROINTESTINAL DISORDER N PERIPHERAL VASCULAR DISEASE N MUSCLE,JOINT OR BONE PROBLEMS N GASTROINTESTINAL BLEEDING N BLOOD CLOTS N ASTHMA N CATARACTS N ERECTILE DYSFUNCTION N VARICOSITIES N GI PROBLEMS N Low Testosterone N INFERTILITY N AIDS/HIV N CHEMOTHERAPY / RADIATION N LIVER DISEASE N MALE HYPOGONADISM N HYPERTENSION Y Deficiency Y TOURETTE'S N ANXIETY DISORDER N BLOOD TRANSFUSION N ANEMIA/BLOOD DISORDER N CHRONIC EAR INFECTIONS N BRONCHITIS N TUBERCULOSIS N GLAUCOMA N FOOT PROBLEM N DIVERTICULITIS N SLEEP APNEA N CHICKENPOX N INFECTIOUS DISEASE N PROSTATE N HEART ARRHYTHMIA N INSOMNIA N HIGH CHOLESTEROL / HYPERLIPIDEMIA Y EYE PROBLEMS N HYPERTHYROIDISM N EDEMA N CHRONIC PAIN SYNDROME N HYPOTHYROIDISM Y CAROTID BLOCKAGE N CONSTIPATION N BACK / NECK PROBLEMS N HAVE YOU BEEN HOSPITALIZED OR SEEN IN [facility] IN THE PAST YEAR ? N ATHEROSCLEROSIS N BREAST PROBLEMS N DIALYSIS N ECZEMA N OSTEOPOROSIS N ARTHRITIS N APPENDICITIS N DIABETES, TYPE N BAD TEETH N ENT N HEARTBURN / REFLUX N AUTISM SPECTRUM DISORDER (ASD) N HEPATITIS / LIVER DISEASE N GOUT N SLEEP DISORDER N ALZHEIMER'S DISEASE N Brain Problems N DEMENTIA N HERPES N SEIZURES/EPILEPSY N HEADACHES/MIGRAINES N VASCULAR DISEASE N PACEMAKER N Blood Disorder N DIZZINESS N HEART DISEASE/HEART PROBLEMS N KIDNEY DISEASE N MULTIPLE SCLEROSIS N CANCER: SPECIFY Y CARDIAC ARRHYTHMIA N ATRIAL FIBRILLATION N Gall Stones N PULMONARY EMBOLISM N AUTOIMMUNE DISEASE N Gynecological History Statement/Question Response Date of Last Pap Date of Last Mammogram 04/28/2021 Date of Last Colonoscopy 03/27/2017 Most Recent Bone Density 06/26/2008 Obstetrics History GPAL:G 0 P 0 0 0 0 Immunizations Vaccine Type Date Status Note Provider Nam e and Address Organization Details Recorded Time COVID-19, mRNA, LNP-S, PF, 100 mcg/0.5mL dose or 50 mcg/0.25mL dose 3 completed Renata Israel RMRadha sanderson [facility] [employer] 03/03/2023 14:13:31 Influenza, high-dose, quadrivalent, PF 3 completed Renata Israel RMA maria e, [employer] [facility] [employer] 03/23/2023 12:36:59 Influenza, split virus, trivalent, preservative 3 completed Not Available [facility] 12/28/2022 08:23:11 influenza, unspecified formulation 2 completed Not Available [facility] 12/28/2022 08:23:11 COVID-19, mRNA, LNP-S, PF, 30 mcg/0.3 mL dose 1 completed Not Available [facility] 12/28/2022 08:23:11 COVID-19, mRNA, LNP-S, PF, 30 mcg/0.3 mL dose 1 completed Not Available [facility] 12/28/2022 08:23:11 Influenza, split virus, quadrivalent, preservative 0 completed Not Available [facility] 12/28/2022 08:23:11 zoster live 0 completed Not Available [facility] 12/28/2022 08:23:11 zoster recombinant 0 completed Not Available [facility] 12/28/2022 08:23:11 Influenza, split virus, quadrivalent, preservative 9 completed Not Available [facility] 12/28/2022 08:23:11 influenza, unspecified formulation 8 completed Not Available [facility] 12/28/2022 08:23:11 Influenza, split virus, quadrivalent, preservative 7 completed Not Available [facility] 12/28/2022 08:23:11 zoster live 6 completed Not Available [facility] 12/28/2022 08:23:11 Influenza, split virus, trivalent, preservative 6 completed Not Available [facility] 12/28/2022 08:23:11 COVID-19, mRNA, LNP-S, PF, 100 mcg/0.5mL dose or 50 mcg/0.25mL dose 2 completed Not Available [facility] 12/28/2022 08:23:11 influenza, unspecified formulation 5 completed Not Available [facility] 12/28/2022 08:23:11 influenza, unspecified formulation 4 completed Not Available [facility] 12/28/2022 08:23:11 Past Encounters Encounter ID Performer Location Encounter Start Date Encounter Closed Date Diagnosis/Indication Diagnosis SNOMED-CT Code Diagnosis ICD10 Code Diagnosis Note [id number] Jameson Silva MD [facility] Internal Med [place] [address], [place] [address] 12/15/2020 00:00:00 12/15/2020 21:47:49 [id number] Jameson Silva MD [facility] Internal Med [address], [facility] [address] [place] [address] 06/25/2021 00:00:00 06/26/2021 13:19:32 [id number] Jameson Silva MD [facility] Internal [place] [address] [place] [address] [place] [address] 09/30/2021 00:00:00 11/01/2021 22:34:52 [id number] Jameson Silva MD [facility] Internal Med [place] [address] [facility] [place] [address] 04/21/2022 00:00:00 04/21/2022 22:58:55 [id number] Jameson Silva MD [facility] Internal Med [place] [address] [place] [address] [place] [address] 11/01/2022 10:43:34 11/01/2022 11:34:33 Essential hypertension 67214580 I10 Hypothyroidism 98731416 E03.9 Pure hypercholesterolemia 536813623 E78.00 [id number] Jameson Silva MD [facility] Internal [facility] [place] [address] [place] [address] [place] [address] 12/06/2022 15:47:52 12/06/2022 16:29:07 Electrocardiogram abnormal 594571394 R94.31 Dyspnea 127371158 R06.00 [id number] Jameson Silva MD [facility] Internal [facility] [place] [address] [place] [address] [place] [address] 12/29/2022 14:59:57 12/29/2022 16:33:11 Dyspnea 966685922 R06.00 Echocardio gram abnormal [id number] R93.1 [id number] Jameson Silva MD [facility] Internal [facility] [place] [address] [place] [address] [place] [address] 02/23/2023 15:11:00 02/23/2023 15:46:25 Dyspnea 132216692 R06.00 Essential hypertension 93575111 I10 Health Concerns Section Related Observation LastModified by Organization Detai ls LastModified Time None Recorded Concern Status LastModified by Organization Details LastModified Time None Recorded Advance Directives Directive Y: Payers Insurance Date Sequence Insurance Name Policy Number Policy Ramirez Covered Member ID Ramirez Member ID Guarantor Name 08/21/2023 1 [facility] (MEDICARE REPLACEMENT/A DVANTAGE - HMO) [id number] Marietta Leblanc [id number] Marietta Leblanc Notes Date Note Type Note Provider Name and Address Organization Details Recorded Time 11/01/2022 text/html hypertension no headache no dizziness hypothyroid no acute or cold intolerance dyslipidemia following diet interval history had surgery with uro Gyne Jameson Silva MD [address] [place] [address], [facility] [address], [place], [address], [facility] [employer] [facility] 11/06/2022 11:52:47 12/06/2022 text/html Dyspnea on exertion for a month or so without any chest pain she has not any palpitations and feeling she is going to pass no swelling in her legs no PND no orthopnea Jameson Silva MD [address], [place], [address], [facility] [employer] [facility] 12/10/2022 10:34:27 12/29/2022 text/html Maybe some residual dyspnea she is following up with Cardiology about her echo Jameson Silva MD [address], [place], [address], [facility] [employer] [facility] 03/19/2023 18:57:22 02/23/2023 text/html I do not have e mortgage processing manager's note but he is asked the patient to get a copy of the CD of the echo because some things did not make sense to him on the official read she still has some of these episodes of shortness of breath but they have improved Jameson Silva MD [address], [place], [address], [facility] [employer] [facility] 02/23/2023 21:42:00 OBGyn Episode No OBEpisode recorded.
--- OUTSIDE RECORDS SUMMARY | 2024-11-26 09:16 | XMS_ITS | Clinical Summary ---
Author Organization [facility] Address [address] [place] [address] Care Team Providers Care Body Make Up Artist Name Role Phone Karli Liz NP Primary Care Provider [phone] Allergies No known active allergies Medications simvastatin (ZOCOR) 20 mg tablet Take 1 tablet (20 mg total) by mouth nightly 3 Active lisinopriL (PRINIVIL,ZESTR IL) 10 mg tablet Take 1 tablet (10 mg total) by mouth daily 3 Active acyclovir (ZOVIRAX) 400 mg tablet Take 1 tablet (400 mg total) by mouth 3 Active calcium carbonate-vitam in D3 1,500 mg (600 mg elemental)-1,00 0 unit capsule Take by mouth A ctive levothyroxine (SYNTHROID) 88 mcg tablet Take 1 tablet (88 mcg total) by mouth 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 Active Active Problems Problem Noted Date Diagnosed Date Abnormal echocardiogram 02/22/2023 Mixed hyperlipidemia 02/22/2023 Shortness of breath 02/22/2023 LVH (left ventricular hypertrophy) 02/22/2023 Nonrheumatic mitral valve regurgitation 02/23/20 Hypothyroidism 10/05/2013 Overview (08/24/2016): HYPOTHYROIDISM NOS Hypertension 10/05/2013 Overview (08/27/2016): HYPERTENSION NOS Medical History Medical History Date Comments Hyperlipidemia Hypertension Family History Medical History Relation Name Comments Liver cancer Father Heart failure Mother Hyperlipidemia Mother Hypertension Mother Relation Name Status Comments Father Mother Social History Tobacco Use Types Packs/Day Years Used Date Smoking Tobacco: Never Smokeless Tobacco: Never Alcohol Use Standard Drinks/Week Comments Yes 0 (1 standard drink = 0.6 oz pur e alcohol) Comments Unknown Sex and Gender Information Value Date Recorded Sex Assigned at Not on file Legal Sex Female 7:55 AM GRANULATOR TENDER Gender Identity Not on file Sexual Orientation Not on file Obstetrics History Last Filed Vital Signs Vital Sign Reading Time Taken Comments Blood Pressure 148/92 06/28/2024 9:27 AM GRANULATOR TENDER Pulse 55 06/28/2024 9:27 AM GRANULATOR TENDER Temperature - - Respiratory Rate 16 02/22/2023 9:37 AM CDT Oxygen Saturation 96% 06/28/2024 9:27 AM GRANULATOR TENDER Inhaled Oxygen Concentration - - Weight 75.3 kg (166 lb) 06/28/2024 9:27 AM GRANULATOR TENDER Height 177.8 cm (5' 10) 06/28/2024 9:27 AM GRANULATOR TENDER Body Mass Index 23.82 06/28/2024 9:27 AM GRANULATOR TENDER Plan of Treatment Health Maintenance Due Date Last Done Comments Colon Cancer Screening-Colonoscopy 1955 Depression Screening 1955 Fall Risk Assessment 1955 Hepatitis C Screening 1955 Osteoporosis Screening-Bone Density Scan 1955 Hepatitis B Screening 07/25/1973 Breast Cancer Screening-Mammogram 05/08/2014 05/08/2013, 05/08/2013, 03/20/2012 Well Visit 65+ 07/25/2020 Covid-19 Vaccine (2023-2 5 season) 2024 03/02/2023, 04/04/2022, 04/04/2022, Additional history exists Influenza Vaccine (#1) 2025 , 02/21/2022, 02/11/2021, Additional history exists DTaP/Tdap/Td Vaccine (2 - Td or Tdap) 02/11/2031 02/11/2021 Zoster Vaccine Completed 11/03/2019, 10/20, 06/19/2019, Additional history exists Pneumococcal vaccine 65+ Completed 02/25/2022, 01/21 Insurance [employer] MEDICARE GOLD Care Teams Body Make Up Artist Relationship Specialty Start Date End Date Karli Liz NP [address] [place] [address] PCP - General Family Medicine 06/28/24
--- OUTSIDE RECORDS SUMMARY | 2024-11-26 09:16 | XMS_ITS | Data Portability ---
Author Organization [facility] [place] Address [address] [place] [address] Assessment Encounter Date Assessment Date Assessment LastModified by Organization Details LastModified Time 12/12/2019 12/12/2019 Annual gynecological exam performed. Patient will come back in a year unless there are new symptoms. [email or web address] Not available 12/12/2019 14:08:21 Plan of Treatment Reminders Order Date Submit Date Provider Last Modified By Organization Details Last Modified Time Details Appointments None record ed. Lab None record ed. Referral None record ed. Procedures None record ed. Surgeries None record ed. Imaging None record ed. Medication Orders None record ed. Patient TargetsNo targets recorded. Patient InstructionsNo instructions recorded. Reason for Referral None Reported. Results Created Date Observation Date Name Description Value Unit Range Abnormal Flag Note LastModifiedBy Organization Detail LastModifiedTime 12/12/19 20 12/16/2019 pap, LB Pap test thin prep Negati ve for Intrae pithel ial Lesion or Malign benito normal ACCES SILVIO #: [id number] Sourc e: Cervi jesse/E ndoce rvica l LMP: unsur e Date Taken : 12/11 Speci men Type: ThinP rep Vial Date Repor reina: 2019 Clini jesse Data: Cytot ech: Teodora Golden r, CT( CP) Date Repor reina: 2019 Speci men Adequ acy: Satis facto ry for evalu ation Endoc ervic al/tr ansfo rmati on zone compo nent prese nt Gener al Categ oriza tion: NEGAT ERIS FOR INTRA EPITH ELIAL LESIO N OR MALIG RAZA Inter preta tion/ Resul t: Atrop hy This speci men has been madelin zed by the ThinP rep Imagi chelsey don, an inter activ e compu ter korin don which josé miguel ts the lab in the tarik rankin of ThinP rep Pap Test slide meenaksih herzog ng, the slide was revie wed by a Cytot echno logis t and/o r Patho logis t. D N A A S S A Y S R E P O R T TEST NAME RESUL TS ----- ---- ----- -- HPV High Risk Tarik yan (TMA) ThinP rep Vial The human papil lomav irus (HPV) High Risk Tarik yan is an FDA-a pprov ed in-vi tro ampli fied nucle ic acid test for the quali tativ e detec tion of E6/E7 viral mRNA. Resul ts shoul d be corre lated with patie nt prese ntati on, histo ry, cervi jesse cytol ogy and other clini jesse and labor atory findi ngs. See https ://[employer]/s ites/ defau lt/fi les/2 018-0 3/AW- 20767 _002_ 01.pd f for radha luciano yan. Test perfo rmed by [facility], d/b/a Jose M zavala, [address], [place] [address] , Ousmane Hamilton ra, DO, Labor atory [facility]. HPV High Risk *HPV NOT DETEC REINA (TYPE S 16, 18, 31, 33, 35, 39, 45, 51, 52, 56, 58, 59, 66, 68) *HPV: The human papil lomav irus (HPV) High Risk Tarik yan is an FDA-a pprov ed in-vi tro ampli fied nucle ic acid test for the quali tativ e detec tion of E6/E7 viral mRNA. Resul ts shoul d be corre lated with patie nt prese ntati on, histo ry, cervi jesse cytol ogy and other clini jesse and labor atory findi ngs. See https ://ww [employer]/s ites/ defau lt/fi les/2 018-0 3/AW- 39155 _002_ 01.pd f for radha luciano kenneyr edison farrah. Test perfo rmed by [email or web address], d/b/a [facility] [employer], [address], [place] [address] , Ousmane Hamilton ra, DO, [facility]. End of t Techn ical servi lavelle provi ded by [employer], d/b/a [employer], [address] [place] [address] Alan Simeon MD, [facility]. Case revie wed and diagn osis rende red at [employer], d/b/a [facility], [address] [place] [address] Alan Simeon MD, [facility]. CONFI DENTI AL Not Available [facility] ([facility]) [facility] [address] [facility] [address], [place], [address], 12/16/2019 09:19:45 12/12/19 20 12/13/2019 HPV DNA, high- risk HPV high risk NOT DETECT ED normal Not Available [facility] ([facility]) [address] [place] [address], [place], [address], 12/16/2019 09:19:46 04/21/20 20 04/21/2020 MAMMO , diagn ostic , unila teral No observ ation record ed. layran [facility] Breast [facility] [address], [place], [address], 04/30/2020 16:49:26 Result Notes None recorded. Problems Name Problem SNOMED Code Status Onset Date Resolution Date Notes Provider Name and Address Organization Details Recorded Time Screening for malignant neoplasm of rectum Active 2017 Encounter for screening for malignant neoplasm of rectum;Rec orded Elsewhere: No Locatio n: [facility] rce: EHR Chroni c: N Practice ID: [id number] Billa ble Time: 01:00:00 PM Not Available [facility] 0 17:51:[address] Concept Active 2018 Encntr for errand runner exam (general) (routine) w/o abn findings;R ecorded Elsewhere: No Locatio n: [facility] rce: EHR Chroni c: N Practice ID: 0001 Billa ble Time: 01:00:00 PM Not Available [facility] 0 17:51:01 Blood leukocyte number above reference range [id number] Active 2018 Elevated white blood cell count, unspecifie d;Recorded Elsewhere: No Locatio n: [facility] rce: EHR Chroni c: N Practice ID: 0001 Billa ble Time: 01:00:00 PM Not Available [facility] 0 17:51:[address] Concept Active 2018 Encntr for general adult medical exam w/o abnormal findings;R ecorded Elsewhere: No Locatio n: [facility] rce: EHR Chroni c: N Practice ID: 0001 Billa ble Time: 01:00:00 PM Not Available [facility] 0 17:51:[address] Concept Active 2018 Encounter for general adult medical exam w abnormal findings;P ractice ID: [id number] Not Available [facility] 0 17:51:02 Problem Notes None recorded. Procedures Surgical History Date Name Laterality Status Provider Name and Address Organization Details Recorded Time thyroidectomy completed Vidya Reeves [facility] 12/12/2019 14:10:24 Imaging Results None recorded. Procedure Notes None recorded. Medical Equipment None Reported. Allergies No known drug allergies Medications Name Sig Start Date Stop Date Status Note LastModified by Organization Details LastModified Time lisinopri l 20 mg tablet take 1 tablet by oral route every day active Prescrib ed Elsewher e: Yes [facility] By: tran Thomas ncounter DateTime : 10/03/19 18 01:00:00 PM Not Available Not Available Not Available simvastat in 10 mg tablet take 1 tablet by oral route every day in the evening active Prescrib ed Elsewher e: Yes Loca tion: Binta thomas [facility] odify By: tran castro DateTime : 10/03/19 18 01:00:00 PM Not Available Not Available Not Available Vitamin D3 10 mcg (400 unit) tablet 10/30 completed Prescrib ed Elsewher e: Yes Loca [facility]ion: [facility] odify By: gloria sanchezunter DateTime : 10/03/19 18 01:00:00 PM Not Available Not Available Not Available levothyro xine 200 mcg intraveno us powder for solution inject by intraven ous route every day active Prescrib ed Elsewher e: Yes Loca tion: [facility] odify By: tran sanchezunter DateTime : 10/03/19 18 01:00:00 PM Not Available Not Available Not Available Valtrex 500 mg tablet take by oral route once daily 12/25 completed Pt requeste d not to refill; taken care of by her pcp going forward. Not Available Not Available Not Available acyclovir 200 mg capsule take 1 capsule by oral route every 2 hours 5 times per day 10/30 completed Prescrib ed Elsewher e: No Locat ion: Binta thomas [facility] odify By: gloria sanchezuntluciano DateTime : 10/03/19 18 01:00:00 PM Not Available Not Available Not Available Calcium-5 00 500 mg (as calcium carbonate 1,250 mg) chewable tablet active Prescrib ed Elsewher e: Yes Loca tion: [facility] odify By: tran sanchezunter DateTime : 10/03/19 18 01:00:00 PM Not Available Not Available Not Available levothyro xine active Not Available Not Available Not Available calcium active Not Available Not Avail able Not Available simvastat in active Not Available Not Available Not Available lisinopri l active Not Available Not Available Not Available Vitamin D3 active Not Available Not Available Not Available acyclovir 200 mg/5 mL (5 mL) oral suspensio n take 20 millilit er by oral route every 4 hours for 10 days while awake 10/02 completed Prescrib ed Elsewher e: Yes Loca tion: [facility] Alvin escalona By: adam tz Encou nter DateTime : 10/03/19 01:00:00 PM Not Available Not Available Not Available Vitals Date Recorded Body height Body mass index (BMI) Body weight Systolic And Diastolic Provider Name and Address Organization Details Last Updated DateTime 12/12/2019 2118.36 cm 0.2 kg/m2 63042.19 g 136/88 mm[Hg] Vidya Reeves [facility] 12/12/2019 14:08:43 Social History None recorded. Functional Status None recorded. Mental Status None recorded. Family History Nothing Reported. Medical History Condition Response Allergies (Food, seasonal, environmental ) N Other N Breast Cancer N Drug/Latex Allergies/Reactions N Blood Transfusion N Dermatologic Disorders N Lung Disease N Defects or Inherited Disease N Breast Problem N Gestational Diabetes N Hematologic disorders N Anesthesia Complications N History of STI N Deep Vein Thrombosis N Polycystic ovary syndrome N Anxiety Disorder N Autoimmune disease N Arthritis N Infertility N Polyps N Acid Reflux (GERD) N History of abnormal pap N Cancer N Stroke N Varicosities N Neurologic/Epilepsy N Endometriosis N High Cholesterol N Headaches N Fibromyalgia N Kidney Disease N Heart Problems N Kidney or Bladder Problems N Thyroid Problems N GI Problems N Eating Disorder N Anemia N Art (IVF or FET) N Psychiatric Illness N Ovarian Cancer N Diabetes N Pulmonary (TB, Asthma) N Hepatitis/Liver Disease N Eczema N Urinary Tract Infection N Abuse/Domestic Violence N Asthma N Trauma/Violence N Depression/ depression N Heart Disease N Pre-Eclampsia N Hypertension N Osteoporosis N Thrombophilias N Gynecological History Statement/Question Response Current Control Method None Obstetrics History GPAL:G 0 P 0 0 0 0 Past Encounters Encounter ID Performer Location Encounter Start Date Encounter Closed Date Diagnosis/Indication Diagnosis SNOMED-CT Code Diagnosis ICD10 Code Diagnosis Note [id number] Jessica Giraldo [facility] [address] [address] 12/12/2019 14:01:12 12/12/2019 14:38:51 Gynecologic examination 10246707 Z01.419 Take Calcium with Vitamin D 12-1500mg daily. Do monthly self breast exams. It is advised to get annual flu shot in the fall and she could obtain at [facility] or [facility] care clinic. If you haven't received the Tdap vaccine in the last 10 years you should obtain one as well. Have mammogram yearly, bone density every 2-3 years and colonoscop y every 5-10 years depending on findings and history. Engage in daily exercise of low impact aerobic exercise 45-60 minutes 4-5 times weekly. Avoid tobacco and illicit drugs as well as using moderation with alcohol intake less than 1-2 8 oz beverages daily. This lifestyle behavior pattern will lead to less health conditions and longer life span. If BMI greater than 25 weight watchers or dietary consult advised. Questions have been answered. Patient appears to understand instructio ns, but if you have any further questions call or respond to this email Uterine prolapse grade-1 no sx's Call if gets worse or needs urogyn ref Pap/hpv done Potentiall y last pap/hpv unless otherwise indicated per asccp Health Concerns Section Related Observation LastModified by Organization Detai ls LastModified Time None Recorded Concern Status LastModified by Organization Details LastModified Time None Recorded Advance Directives Directive None Recorded Payers Insurance Date Sequence Insurance Name Policy Number Policy Ramirez Covered Member ID Ramirez Member ID Guarantor Name 01/31/2020 1 [facility] [id number] [place] Janel Leblanc [id number] Notes Date Note Type Note Provider Name and Address Organization Details Recorded Time 12/12/2019 text/html Annual GYNReport ed bypatient.History: no gynecologic complaints Menstrual cycle:Normal menses Urinary symptoms:No hematuria; No incontinence Vulva:No genital lesion Vagina:Normal vaginal discharge Breast:No breast pain; No breast lump; No nipple discharge Current Contraception:[place] gamous relationship Sexual complaints:No sexual complaints; No pain during intercourse; Normal libido Menopausal Symptoms:No menopausal symptoms; Normal vaginal lubrication Psychological symptoms:No depression; No anxiety; No PMDD Preventive measures:Encourage self breast examination; Encourage regular exercise; Encourage no tobacco use; Encourage regular mammograms starting age 40; Followed with Q3 year pap smear and high risk HPV typing; Needs to schedule mammogram; Up to date on colonoscopy screening; UTD Dexa by PCP Jessica Giraldo, [facility] [address], [place], [address], [facility] 12/12/2019 14:38:38 OBGyn Episode Ob Episode Information Episode Created Date Number of Fetuses Patient Bloodtype Patient rh Status Prepregnancy Weight lbs Domestic Partner Domestic Partner Phone Father Name Hoisting Machine Operator Status 12/12/19 1 CLOSED Fetus Data First Name Last Name Admitted to NICU Weight (g) Sex Living Outcome Pediatric Complications Fetus ID Race Codes Race Delivery Type [id number] Vaginal Delivery Cecil Calculation Initial Cecil Date Initial Exam Date Initial Exam Provider Initial Ultrasound Date Last Menstrual Period Date Ultra Sound Weeks Gestation 0 Eighteen To Twenty Week Cecil Update Ultra Sound Date Fundal Height At Umbil Quickening Date Ultra Sound Latest Weeks Gestation Final Cecil Confirmed By Final Cecil Confirmed Date Final Cecil Date Ultra Sound Latest Days Gestation 0 0 Menstrual History Last Menstrual Date Menses Monthly On Bcp Conception Prior Menses Frequency Hcg Plus Date Menarche Onset Age Delivery Information Delivery Date Delivery Type Labor Anesthesia Weeks Gestation Incision Type Labor Labor Length Hrs Delivered By Post Complications Tubal Sterilization Discharge Date Comments 6 Discharge Information Feeding Method Contraceptive Method Maternal HG B and HCT Levels Ob Episode Information Episode Created Date Number of Fetuses Patient Bloodtype Patient rh Status Prepregnancy Weight lbs Domestic Partner Domestic Partner Phone Father Name Hoisting Machine Operator Status 12/12/19 20 1 CLOSED Fetus Data First Name Last Name Admitted to NICU Weight (g) Sex Living Outcome Pediatric Complications Fetus ID Race Codes Race Delivery Type [id number] Vaginal Delivery Cecil Calculation Initial Cecil Date Initial Exam Date Initial Exam Provider Initial Ultrasound Date Last Menstrual Period Date Ultra Sound Weeks Gestation 0 Eighteen To Twenty Week Cecil Update Ultra Sound Date Fundal Height At Umbil Quickening Date Ultra Sound Latest Weeks Gestation Final Cecil Confirmed By Final Cecil Confirmed Date Final Cecil Date Ultra Sound Latest Days Gestation 0 0 Menstrual History Last Menstrual Date Menses Monthly On Bcp Conception Prior Menses Frequency Hcg Plus Date Menarche Onset Age Delivery Information Delivery Date Delivery Type Labor Anesthesia Weeks Gestation Incision Type Labor Labor Length Hrs Delivered By Post Complications Tubal Sterilization Discharge Date Comments 5 Discharge Information Feeding Method Contraceptive Method Maternal HG B and HCT Levels Ob Episode Information Episode Created Date Number of Fetuses Patient Bloodtype Patient rh Status Prepregnancy Weight lbs Domestic Partner Domestic Partner Phone Father Name Hoisting Machine Operator Status 12/12/19 20 1 CLOSED Fetus Data First Name Last Name Admitted to NICU Weight (g) Sex Living Outcome Pediatric Complications Fetus ID Race Codes Race Delivery Type [id number] Vaginal Delivery Cecil Calculation Initial Cecil Date Initial Exam Date Initial Exam Provider Initial Ultrasound Date Last Menstrual Period Date Ultra Sound Weeks Gestation 0 Eighteen To Twenty Week Cecil Update Ultra Sound Date Fundal Height At Umbil Quickening Date Ultra Sound Latest Weeks Gestation Final Cecil Confirmed By Final Cecil Confirmed Date Final Cecil Date Ultra Sound Latest Days Gestation 0 0 Menstrual History Last Menstrual Date Menses Monthly On Bcp Conception Prior Menses Frequency Hcg Plus Date Menarche Onset Age Delivery Information Delivery Date Delivery Type Labor Anesthesia Weeks Gestation Incision Type Labor Labor Length Hrs Delivered By Post Complications Tubal Sterilization Discharge Date Comments 0 Discharge Information Feeding Method Contraceptive Method Maternal HG B and HCT Levels
--- OUTSIDE RECORDS SUMMARY | 2024-11-26 09:16 | XMS_ITS | Referral Summary ---
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 Active Active Problems Problem Noted Date Diagnosed Date Abnormal echocardiogram 02/22/2023 Mixed hyperlipidemia 02/22/2023 Shortness of breath 02/22/2023 LVH (left ventricular hypertrophy) 02/22/2023 Nonrheumatic mitral valve regurgitation 02/23/20 Hypothyroidism 10/05/2013 Overview (08/24/2016): HYPOTHYROIDISM NOS Hypertension 10/05/2013 Overview (08/27/2016): HYPERTENSION NOS Social History Tobacco Use Types Packs/Day Years Used Date Smoking Tobacco: Never Smokeless Tobacco: Never Alcohol Use Standard Drinks/Week Comments Yes 0 (1 standard drink = 0.6 oz pur e alcohol) Comments Unknown Sex and Gender Information Value Date Recorded Sex Assigned at Not on file Legal Sex Female 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 Gender Identity Not on file Sexual Orientation Not on file Last Filed Vital Signs Vital Sign Reading Time Taken Comments Blood Pressure 148/92 06/28/2024 9:27 AM SITE PLANNER Pulse 55 06/28/2024 9:27 AM SITE PLANNER Temperature - - Respiratory Rate 16 02/22/2023 9:37 AM CDT Oxygen Saturation 96% 06/28/2024 9:27 AM SITE PLANNER Inhaled Oxygen Concentration - - Weight 75.3 kg (166 lb) 06/28/2024 9:27 AM SITE PLANNER Height 177.8 cm (5' 10) 06/28/2024 9:27 AM SITE PLANNER Body Mass Index 23.82 06/28/2024 9:27 AM SITE PLANNER Plan of Treatment Not on file Insurance [employer] MEDICARE GOLD Care Teams Nuclear Engineering Technician Relationship Specialty Start Date End Date Karli Liz NP [address] [place] [address] PCP - General Family Medicine 06/28/24
--- OUTSIDE RECORDS SUMMARY | 2024-11-26 09:16 | XMS_ITS | Clinical Summary ---
Author Organization [facility] Address [address] [place] [address] Phone Care Team Providers Care Bricklayer Paving Brick Name Role Phone Mark Silva MD Primary Care Provider [phone] Medications levothyroxine (SYNTHROID) 150 mcg Oral Tab Take by mouth. Active valacyclovir (VALTREX) 500 mg Oral Tab Take by mouth. Active EZETIMIBE/SIMVAS TATIN (VYTORIN 10/20 PO) Take by mouth. 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 Gender Identity Not on file Sexual Orientation Not on file Plan of Treatment Health Maintenance Due Date Last Done Comments DTAP/TDAP/TD VACCINES (1 - Tdap) 07/25/1974 COLORECTAL SCREENING 07/25/2000 Colorectal Cancer Screening 07/25/2000 FIT-DNA Q 3 years 07/25/2000 FIT/FOBT Q 1 year 07/25/2000 Flex Sig/CT Colonography Q 5 years 07/25/2000 PNEUMOCOCCAL VACCINE 50+ YEA RS (1 of 1 - PCV) 07/25/2005 ZOSTER VACCINE (1 of 2) 07/25/2005 BREAST CANCER SCREENING 05/08/2014 05/08/20 13, 03/20/2012, 10/12/2010 OSTEOPOROSIS SCREENING 07/25/2020 INFLUENZA VACCINE (#1) 2024 RSV VACCINE (60+ or ) (1 - 1-dose 75+ series) 07/25/2030 Procedures Procedure Name Priority Date/Time Associated Diagnosis Comments MAMMO SCREEN BILAT W OR WO CAD Routine 05/08/2013 from Last 3 Months or Most Recently Relevant to Health Maintenance Results * MAMMO DIGITAL SCREEN BILAT (05/08/2013) Anatomical Region Laterality Modality Breast Bilateral Other us Elis Youssef MD MAMMO ORDERABLES Final Resul t from Last 3 Months or Most Recently Relevant to Health Maintenance Insurance [facility] BLUE ACCESS/TRUE BLUE PPO Care Teams Bricklayer Paving Brick Relationship Specialty Start Date End Date Mark Silva MD PCP - General 01/01/09
[2024-11-26 12:26] LABS: Hematocrit 43.6 % (37.0-47.0); Hemoglobin 14.5 g/dL (12.0-15.0); Mean Corpuscular HGB Conc 33.3 g/dl (32-36); Mean Corpuscular Hemoglobin 32.2 pg (26-34); Mean Corpuscular Volume 96.9 fl (80-100); Platelet Count Result 180 k/mm3 (150-375); Red Blood Count 4.50 M/mm3 (4.2-5.4); White Blood Count 5.7 K/mm3 (4.5-10.0)
[2024-11-26 12:32] LABS: Alanine Aminotransferase 18 U/L (6-35); Albumin Level 4.5 g/dL (3.5-5.1); Alkaline Phosphatase 50 U/L (38-126); Anion Gap 10 mmol/L (4-12); Aspartate Amino Transferase 44 U/L (14-36); Bilirubin,Total 0.6 mg/dL (0.2-1.3); Calcium 9.0 mg/dL (8.4-10.2); Carbon Dioxide 25 mmol/L (22-30); Chloride 107 mmol/L (98-107); Cholesterol 183 mg/dL (0-200); Glucose 89 mg/dL (65-110); HDL Direct 60 mg/dL; Potassium 4.0 mmol/L (3.4-5.0); Sodium 142 mmol/L (137-145); Total Protein 7.4 g/dL (6.3-8.2); Triglycerides 148 mg/dL (<150)
[2024-11-26 12:33] LABS: Blood Urea Nitrogen 16 mg/dL (7-17); Estimated Glomerular Filt Rate > 60
[2024-11-26 13:35] LABS: Thyroid Stimulating Hormone Reflex 1.650 uIU/mL (0.465-4.68)
== END 2024-11-26 09:11 | disposition home or self-care (01) ==
PROVIDERS: PCP Nurse Practitioner Family; Visit Provider Nurse Practitioner Family
DX: E55.9 Vitamin D deficiency, unspecified (principal); Z85.828 Personal history of other malignant neoplasm of skin; Z76.89 Persons encountering health services in other specified circumstances; E89.0 Postprocedural hypothyroidism; D12.6 Benign neoplasm of colon, unspecified; N81.2 Incomplete uterovaginal prolapse; N81.4 Uterovaginal prolapse, unspecified; I10 Essential (primary) hypertension; E78.5 Hyperlipidemia, unspecified; M85.89 Other specified disorders of bone density and structure, multiple sites
CPT/HCPCS: 36415; 80053; 80061; 82306; 84443; 85027

== ENCOUNTER 2025-04-04 09:49 | Outpatient (CLI) | payer MEDICARE, SELFPAY ==
--- NOTE | ~2025-04-04 | DEXA_ITS ---
Bone Density Report Name: GERTRUDIS ANN Age: 69 Sex: Female Ethnicity: White Date of : 1955 Indication: osteopenia; parental hip fracture; height loss; cancer; Referring Provider: MINE MAURICE Study: Bone densitometry was performed. Exam Date: April 04, 2025 Accession number: [id number] Bone Density: Region BMD T-score Z-score Classification AP Spine(L1-L4) 0.975 -0.7 1.4 Normal Femoral Neck (Left) 0.698 -1.4 0.4 Osteopenia Total Hip (Left) 0.876 -0.5 0.9 Normal Femoral Neck (Right) 0.747 -0.9 0.9 Normal Total Hip (Right) 0.906 -0.3 1.2 Normal Total Hip Mean 0.891 -0.4 1.1 Normal World Health Organization criteria for BMD impression classify patients as: Normal (T-score at or above -1.0), Osteopenia (T-score between -1.0 and -2.5), or Osteoporosis (T-score at or below -2.5). 10-year Fracture Risk(1): Major Osteoporotic Fracture 15% Hip Fracture 2.4% Reported Risk Factors: [place] (), Neck BMD=0.698, BMI=24.1, parental fracture (1) FRAX(R) Version 3.08. Fracture probability calculated for an untreated patient. Fracture probability may be lower if the patient has received treatment. Previous Exams: Region Exam Age BMD T-score BMD Change BMD Change Date g/cm2 vs Baseline vs Previous AP Spine (L1-L4) 04/04/2025 69 0.975 -0.7 -0.026 (-2.6%) -0.007 (-0.8%) 06/29/2022 66 0.983 -0.6 -0.018 (-1.8%) 0.000 (0.0%) 03/16/2016 60 0.983 -0.6 -0.018 (-1.8%) -0.018 (-1.8%) 12/24/2013 58 1.001 -0.4 Total Hip(Left) 04/04/2025 69 0.876 -0.5 0.085 (10.7%)* 0.072 (9.0%)* 06/29/2022 66 0.804 -1.1 0.013 (1.6%) -0.043 (-5.1%) 03/16/2016 60 0.847 -0.8 0.056 (7.0%)* 0.056 (7.0%)* 12/24/2013 58 0.792 -1.2 Total Hip(Right) 04/04/2025 69 0.906 -0.3 0.070 (8.3%)* 0.056 (6.6%)* 06/29/2022 66 0.850 -0.8 0.013 (1.6%) -0.020 (-2.3%) 03/16/2016 60 0.870 -0.6 0.033 (4.0%)* 0.033 (4.0%)* 12/24/2013 58 0.837 -0.9 *Denotes significance at 95% confidence level, LSC for AP Spine = 0.022 g/cm2, LSC for Total Hip = 0.027 g/cm2 Clinical Information Provided by Patient: Parent has had a hip fracture Has used the following medications: Vitamin D, Calcium Has the following medical conditions: Cancer Patient maximum height was 70 Menopause Age: 54 Onset of menses at age 13 Number of children 3 Impression: The patient has low bone mass, based on the Left Femoral Neck T-score. The patient has an estimated ten-year risk of hip fracture of 2.4% and an estimated ten-year risk of major fracture of 15%, based on the WHO FRAX algorithm. The patient has risk factors, including: parental hip fracture. No significant bone loss was observed. Discussion: BONE DENSITY IS LOW AT ONE OR MORE SKELETAL SITES. This patient's lowest T-score is low at one or more skeletal sites. It meets the World Health Organization's (WHO) criteria for ?low bone mass? (T-score between -1.0 and -2.5). The patient's 10-year risk of fracture as calculated by FRAX is less than the threshold where pharmacological therapy is recommended by the National Osteoporosis Foundation (NOF). However, all treatment decisions require clinical judgment and consideration of individual patient factors, including patient preferences, comorbidities, previous drug use, risk factors not captured in the FRAX model (e.g., frailty, falls, vitamin D deficiency, increased bone turnover, interval significant decline in bone density) and possible under or overestimation of fracture risk by FRAX. The patient should follow a healthful lifestyle (good nutrition with adequate calcium and vitamin D, and appropriate weight-bearing exercise). Follow-Up: Consider repeating this study in 2 to 3 years to reassess this patient's status, or sooner if there is some new clinical indication. Reported by: AMBAR on 04/04/2025 10:39:00 AM. Reviewed, dictated and finalized at location A.
--- OUTSIDE RECORDS SUMMARY | 2025-04-04 11:18 | XMS_ITS | Data Portability ---
Author Organization [facility] Address [address] [place] [address] Assessment Encounter Date Assessment Date Assessment LastModified [...] josé miguel ts the lab in the traik rankin of ThinP rep Pap Test slide meenakshi herzog ng, the slide was revie wed [...] and labor atory findi ngs. See https ://ByAllAccounts/s ites/ defau lt/fi les/2 018-0 3/AW- 06284 _002_ 01.pd f for radha luciano yan. Test perfo rmed by [facility], d/b/a Jose M zavala, [address], [place] [address] , Ousmane Hamilton ra, DO, [facility]. HPV High Risk *HPV NOT DETEC [...] labor atory findi ngs. See https ://ww RediMetrics/s ites/ defau lt/fi les/2 018-0 3/AW- 16052 _002_ 01.pd f for radha luciano kenneyr edison farrah. Test perfo rmed by [facility], d/b/a [facility], [address], [place] [address] , Ousmane Hamilton ra, DO, [facility]. End of t Techn ical servi lavelle provi ded by [facility], d/b/a [facility], [address] [place] [address] Alan Simeon MD, [facility]. Case revie wed and diagn osis rende red at [facility], d/b/a [facility], [address] [place] [address] Alan Simeon MD, [facility]. CONFI DENTI AL Not Available [facility] ([facility]) [facility] [address], [place], [address], 12/16/2019 09:19:45 12/12/19 20 12/13/2019 HPV DNA, high- risk HPV high risk NOT DETECT ED normal Not Available [facility] ([facility]) [address] [place] [address], [place], [address], 12/16/2019 09:19:46 04/21/20 20 04/21/2020 MAMMO , diagn ostic , unila teral No observ ation record ed. layran [facility] Breast [facility] [address], [place], [address], 04/30/2020 16:49:26 Result Notes None recorded. 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) w/o abn findings;R ecorded Elsewhere: No Locatio n: [facility] rce: EHR Chroni c: N Practice ID: [id number] Billa ble Time: 01:00:00 PM Not Available [facility] 0 17:51:01 Blood leukocyte number above reference range [id number] Active 2018 Elevated white blood cell count, unspecifie d;Recorded Elsewhere: No Locatio n: [facility] rce: EHR Chroni c: N Practice ID: [id number] Billa ble Time: 01:00:00 PM Not Available [facility] 0 17:51:[address] Concept Active 2018 Encntr for general adult medical exam w/o abnormal findings;R ecorded Elsewhere: No Locatio n: [facility] rce: EHR Chroni c: N Practice ID: [id number] Billa ble Time: 01:00:00 PM Not Available [facility] 0 17:51:[address] Concept Active 2018 Encounter for general adult medical exam w abnormal findings;P ractice ID: 0001 Not Available [facility] 0 17:51:02 Problem Notes None recorded. Procedures Surgical History Date Name Laterality Status Provider Name and Address Organization Details Recorded Time thyroidectomy completed Vidya Reeves [facility] 12/12/2019 14:10:24 Imaging Results None recorded. Procedure Notes None recorded. Medical Equipment None Reported. Allergies No known drug allergies Medications Name Sig Start Date Stop Date Status Note LastModified by Organization Details LastModified Time lisinopri l 20 mg tablet take 1 tablet by oral route every day active Prescrib ed Elsewher e: Yes [facility] By: tran Thomas ncounter DateTime : 10/03/19 18 01:00:00 PM Not Available Not Available Not Available simvastat in 10 mg tablet take 1 tablet by oral route every day in the evening active Prescrib ed Elsewher e: Yes Loca tion: Binta thomas [facility] odify By: tran castro DateTime : 10/03/19 18 01:00:00 PM Not Available Not Available Not Available Vitamin D3 10 mcg (400 unit) tablet 10/30 completed Prescrib ed Elsewher e: Yes [facility]ify By: gloria sanchezunter DateTime : 10/03/19 18 01:00:00 PM Not Available Not Available Not Available levothyro xine 200 mcg intraveno us powder for solution inject by intraven ous route every day active Prescrib ed Elsewher e: Yes Loca tion: [facility] odify By: tran sanchezunter DateTime : 10/03/19 [...] Elsewher e: No Locat ion: Binta thomas [facility] odify By: gloria sanchezuntluciano DateTime : 10/03/19 18 01:00:00 PM Not Available Not Available Not Available Calcium-5 00 500 mg (as calcium carbonate 1,250 mg) chewable tablet active Prescrib ed Elsewher e: Yes Loca tion: [facility] odify By: tran sanchezunter DateTime : 10/03/19 [...] Prescrib ed Elsewher e: Yes Loca tion: [facility] Alivn escalona By: adam tz Encou nter DateTime : 10/03/19 01:00:00 PM Not Available Not Available Not Available Vitals Date Recorded Body height Body mass index (BMI) Body weight Systolic And Diastolic Provider Name and Address Organization Details Last Updated DateTime 12/12/2019 2118.36 cm 0.2 kg/m2 02107.19 g 136/88 mm[Hg] Vidya Reeves [facility] 12/12/2019 14:08:43 Social History None recorded. [...] Diagnosis SNOMED-CT Code Diagnosis ICD10 Code Diagnosis IMO Codes Diagnosis Note [id number] Jessica Giraldo [facility] [address] [address] 12/12/2019 14:01:12 12/12/2019 14:38:51 Gynecologic examination [id number] Z01.419 Take Calcium with Vitamin D 12-1500mg daily. Do monthly self breast exams. It is advised to get annual flu shot in the fall and she could obtain at [facility] or [facility] care clinic. If you haven't received the [...] Ramirez Member ID Guarantor Name 01/31/[address] [facility] [id number] [facility] Janel Felixs [id number] Notes Date Note Type Note Provider Name and Address Organization Details Recorded Time 0 text/html Annual GYNReported by PatientHistoryFor history, patient reportsno gynecologic complaints.Genitourina ry symptomsFor menstrual cycle, patient reportsnormal menses. For urinary symptoms, patient reportsno hematuriaandno incontinence. For vulva, patient reportsno genital lesion. For vagina, patient reportsnormal vaginal discharge.Breast symptomsFor breast, patient reportsno breast pain,no breast lump, andno nipple discharge.Endocrine symptomsFor sexual complaints, patient reportsno sexual complaints,no pain during intercourse, andnormal libido. For menopausal symptoms, patient reportsno menopausal symptomsandnormal vaginal lubrication.Psychologi jesse symptomsFor psychological symptoms, patient reportsno depression,no anxiety, andno pmdd.Preventative measuresFor preventive measures, patient reportsencourage self breast examination,encourage regular exercise,encourage no tobacco use,encourage regular mammograms starting age 40,needs to schedule mammogram, andup to date on colonoscopy screening(utd dexa by pcp). Jessica Giraldo, MARITZA- [address], [place], [address], [facility] 12/12/2019 14:38:38 OBGyn Episode Ob Episode Information Episode Created Date Number of Fetuses Patient Bloodtype Patient rh Status Prepregnancy Weight lbs Domestic Partner Domestic Partner Phone Father Name Farm Helper Status 12/12/19 20 1 CLOSED Fetus Data [...] Domestic Partner Domestic Partner Phone Father Name Farm Helper Status 12/12/19 20 1 CLOSED Fetus Data [...] Domestic Partner Domestic Partner Phone Father Name Farm Helper Status 12/12/19 20 1 CLOSED Fetus Data [...]
--- OUTSIDE RECORDS SUMMARY | 2025-04-04 11:19 | XMS_ITS | Clinical Summary ---
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
--- OUTSIDE RECORDS SUMMARY | 2025-04-04 11:19 | XMS_ITS | Clinical Summary ---
Author Organization [facility] Address [address] [place] [address] Care Team Providers Care Canal Boat Captain Name Role Phone Karli Liz NP Primary Care Provider [phone] Allergies No known active allergies Medications simvastatin (ZOCOR) 20 mg tablet Take 1 tablet (20 mg total) by mouth nightly 01/12/20 23 Active acyclovir (ZOVIRAX) 400 mg tablet Take 1 tablet (400 mg total) by mouth 02/15/20 23 Active calcium carbonate-leobardo min D3 1,500 mg (600 mg elemental)-1,0 00 unit capsule Take by mouth Active levothyroxine (SYNTHROID) 88 mcg tablet Take 1 tablet (88 mcg total) 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 Active amLODIPine (NORVASC) 5 mg tablet Take 1 tablet (5 mg total) by mouth daily 02/13/20 25 Active lisinopriL (PRINIVIL,ZEST RIL) 40 mg tablet 03/18/20 25 Active lisinopriL (PRINIVIL,ZEST RIL) 10 mg tablet Take 1 tablet (10 mg total) by mouth daily 12/27/19 23 025 Discontinued Active Problems Problem Noted Date Diagnosed Date Abnormal ECG 04/02/2025 Abnormal echocardiogram 02/22/2023 Mixed hyperlipidemia 02/22/2023 Shortness of breath 02/22/2023 LVH (left ventricular hypertrophy) 02/22/2023 Nonrheumatic mitral valve regurgitation 02/23/20 23 Hypothyroidism 10/05/2013 Overview (08/24/2016): HYPOTHYROIDISM NOS Hypertension 10/05/2013 Overview (08/27/2016): HYPERTENSION NOS Encounters Date Type Department Care Team Description 04/02/2025 2:15 PM FEATHER SAWYER Office Visit [facility] Cardiology [address] [place] [address] [place] [address] Emmett Bowers MD Mixed hyperlipidemia (Primary Dx); LVH (left ventricular hypertrophy); Primary hypertension; Nonrheumatic mitral valve regurgitation; Abnormal ECG; Abnormal echocardiogram from Last 3 Months Medical History Medical History Date Comments Hyperlipidemia [...] on file Legal Sex Female 7:55 AM FEATHER SAWYER Gender Identity Not on file Sexual Orientation Not on file Last Filed Vital Signs Vital Sign Reading Time Taken Comments Blood Pressure 98/74 04/02/2025 2:16 PM FEATHER SAWYER Pulse 64 04/02/2025 2:16 PM FEATHER SAWYER Temperature - - Respiratory Rate 14 04/02/2025 2:16 PM FEATHER SAWYER Oxygen Saturation 96% 04/02/2025 2:16 PM FEATHER SAWYER Inhaled Oxygen Concentration - - Weight 73 kg (161 lb) 04/02/2025 2:16 PM FEATHER SAWYER Height 177.8 cm (5' 10) 04/02/2025 2:16 PM FEATHER SAWYER Body Mass Index 23.1 04/02/2025 2:16 PM FEATHER SAWYER Plan of Treatment Health Maintenance Due Date Last Done Comments Colon Cancer Screening-Colonoscopy 1955 Depression Screening 1955 Hepatitis C Screening 1955 Osteoporosis Screening-Bone Density Scan 1955 Hepatitis B Screening 07/25/1973 Breast Cancer Screening-Mammogram 05/08/2014 013, 03/20/2012 Well Visit 65+ 07/25/2020 Covid-19 Vaccine (7 2024-2 6 season) 2025 03/02/2023, 04/04/2022, 04/04/2022, Additional history exists Influenza Vaccine (#1) 2025 , 02/21/2022, 02/11/2021, Additional history exists Fall Risk Assessment 04/02/2026 04/02/2025 DTaP/Tdap/Td Vaccine (2 - Td or Tdap) 02/11/2031 02/11/2021 Zoster Vaccine Completed 11/03/2019, 10/20, 06/19/2019, Additional history exists Pneumococcal vaccine 65+ Completed 02/25/2022, 01/21 Procedures Procedure Name Priority Date/Time Associated Diagnosis Comments POCT LIPID PANEL Routine 04/02/2025 4:12 PM FEATHER SAWYER Mixed hyperlipidemia ELECTROCARDIOGRAM REPORT Routine 025 2:15 PM FEATHER SAWYER LVH (left ventricular hypertrophy) from Last 3 Months Results * (ABNORMAL) POCT lipid panel (04/02/2025 4:12 PM FEATHER SAWYER) Cholesterol, POC 156 <200 MG/DL HDL, POC 57 >=40 mg/dL Triglycerides, POC 167(A) <=149 mg/dL LDL Cholesterol POC 65 <=129 mg/dL Chol/HDL Ratio, POC 2.7 NONE Non-HDL Cholesterol, POC 99 NONE mg/dL Cholesterol Total, POC 156 30 - 199 mg/dL Capillary blood 04/02/2025 4 :12 PM FEATHER SAWYER Emmett Bowers MD POINT OF CARE TEST ORDERA BLES Final Result * Electrocardiogram Report (04/02/2025 2:15 PM FEATHER SAWYER) Emmett Bowers MD ECG ORDERABLES Edited Re sult - Final from Last 3 Months Insurance [employer] MEDICARE GOLD Care Teams Canal Boat Captain Relationship Specialty Start Date End Date Karli Liz NP [address] [place] [id number] PCP - General Family Medicine 06/28/24
== END 2025-04-04 09:50 | disposition home or self-care (01) ==
LOC: ANHFOHIMG 09:52
PROVIDERS: PCP Nurse Practitioner Family; Visit Provider Nurse Practitioner Family
DX: M85.88 Other specified disorders of bone density and structure, other site (principal); M85.89 Other specified disorders of bone density and structure, multiple sites
CPT/HCPCS: 77080